=== PATIENT | male | born 1940 | race Caucasian/White ===

== ENCOUNTER 2018-07-29 11:11 | Outpatient (CLI) | payer MEDICARE | END 2018-07-29 11:12 | disposition critical access hospital (66) | LOC: EMS 11:11 | PROVIDERS: ATTEND Surgery | DX: M25.562 Pain in left knee (principal); W18.39XA Other fall on same level, initial encounter; Y92.039 Unspecified place in apartment as the place of occurrence of the external cause | CPT/HCPCS: A0425; A0429 ==

== ENCOUNTER 2018-07-29 11:30 | Emergency (ER) | payer MEDICARE ==
[2018-07-29] MEDS ORDERED: oxyCODONE 5 MG TABLET PO STA (12:10)
--- NOTE | 2018-07-29 12:12 | ED Physician Documentation ---
PD HPI LOWER EXT INJURY - Stated complaint Stated Complaint: L KNEE PAIN - Chief complaint Chief Complaint: Ext Problem - History obtained from History obtained from: Patient - History of Present Illness PD HPI LOW EXT INJURY LOCATION: Left (This is a very pleasant 77-year-old gentleman with history of CVA with left-sided deficits, currently in a [facility]. He does walk with the aid of a walker. Today they were getting him up to weigh him after shower and he fell. He injured his left knee, it was an isolated injury without head or other injury. The pain is severe with movement, not too bad at rest.) Review of Systems Constitutional: reports: Reviewed and negative Cardiac: reports: Reviewed and negative Respiratory: reports: Reviewed and negative PD PAST MEDICAL HISTORY - Past Medical History Cardiovascular: Hypertension Other Past Medical History: Left hemiplegia, hemiparesis, insomnia, chronic pain, sz, muscle weakness. - Present Medications Home Medications: Ambulatory Orders Medication Instructions Recorded Confirmed Oxycodone HCl/Acetaminophen 1 - 2 each PO Q6H PRN #14 tablet 07/29/18 [Percocet 5-325 mg Tablet] - Allergies Allergies/Adverse Reactions: Allergies Allergy/AdvReac Type Severity Reaction Status Date / Time No Known Drug Allergies Allergy Verified 07/29/18 12:27 - Social History Does the pt smoke?: No Smoking Status: Never smoker Does the pt drink ETOH?: No Does the pt have substance abuse?: No PD ED PE NORMAL - Vitals Vital signs reviewed: Yes - General General: Alert and oriented X 3, No acute distress - HEENT HEENT: Other (Modest left facial droop) - Neck Neck: Supple, no meningeal sign, No bony TTP - Derm Derm: Normal color, Warm and dry - Extremities Extremities: Other (Left upper extremity strength is good. He is holding his left knee mostly flexed, there is an effusion and he has medial and posterior tenderness without deformity. He is unable to lift it off the bed due to pain.) - Neuro Neuro: Alert and oriented X 3, Normal speech Results - Vitals Vitals: Vital Signs - 24 hr 07/29/18 07/29/18 11:46 14:42 Temperature 36.8 C Heart Rate 99 86 Respiratory 18 15 Rate Blood Pressure 148/70 H 120/53 L O2 Saturation 99 94 Oxygen O2 Source Room air - Rads (name of study) L knee XR Radiology: EMP read contemporaneously (NAD) Departure - Departure Disposition: 01 Home, Self Care Clinical Impression: Contusion of left knee Qualifiers: Encounter type: initial encounter Qualified Code(s): S80.02XA - Contusion of left knee, initial encounter Condition: Good Record reviewed to determine appropriate education?: Yes Instructions: ED Effusion Knee Follow-Up: [facility] [Provider Group] - Within 1 week Prescriptions: Oxycodone HCl/Acetaminophen [Percocet 5-325 mg Tablet] 1 - 2 each PO Q6H PRN #14 tablet PRN Reason: pain Comments: Followup with the orthopedics office within the week if not better. Return for new or worse symptoms.
[2018-07-29] MEDS ORDERED: HYDROmorphone 1 MG/ML CARPUJECT IM STA (14:29)
--- NOTE | 2018-07-29 14:39 | XRAY Report ---
Reason: knee inj Procedure Date: 07/29/2018 Accession Number: [id number] / [id number] Procedure: XR - Knee 4 View LT CPT Code: FULL RESULT: EXAM: LEFT KNEE RADIOGRAPHY EXAM DATE: 07/29/2018 02:27 PM. CLINICAL HISTORY: Fall, pain. COMPARISON: None. TECHNIQUE: 4 views. FINDINGS: Bones: Marked osteopenia. No definite fracture or other bone lesion. Joints: Joint spaces well preserved. No effusion. Minimal chondrocalcinosis. Soft Tissues: Unremarkable. IMPRESSION: Chronic findings. No definite acute disease. RADIA
[2018-07-29 14:43] VITALS: BP 120/53
[2018-07-29] MEDS ORDERED: KETOROLAC 60 MG/2 ML VIAL IM STA (15:23)
== END 2018-07-29 16:32 | disposition home or self-care (01) ==
LOC: ED 11:30
DX: S80.02XA Contusion of left knee, initial encounter (principal); W18.30XA Fall on same level, unspecified, initial encounter; Y93.89 Activity, other specified; Y92.129 Unspecified place in nursing home as the place of occurrence of the external cause; I69.354 Hemiplegia and hemiparesis following cerebral infarction affecting left non-dominant side; I10 Essential (primary) hypertension
CPT/HCPCS: 73564; 96372; 99283; A9270; J1170

== ENCOUNTER 2018-07-29 16:39 | Outpatient (CLI) | payer MEDICARE | END 2018-07-29 16:40 | disposition home or self-care (01) | LOC: EMS 16:39 | PROVIDERS: ATTEND Surgery | DX: G81.94 Hemiplegia, unspecified affecting left nondominant side (principal); M43.6 Torticollis; M25.562 Pain in left knee | CPT/HCPCS: A0425; A0428 ==

== ENCOUNTER 2018-07-31 11:06 | Outpatient (CLI) | payer MEDICARE | END 2018-07-31 11:07 | disposition critical access hospital (66) | LOC: EMS 11:06 | PROVIDERS: ATTEND Surgery | DX: M25.562 Pain in left knee (principal); M25.552 Pain in left hip; W18.2XXA Fall in (into) shower or empty bathtub, initial encounter; Y92.002 Bathroom of unspecified non-institutional (private) residence as the place of occurrence of the external cause | CPT/HCPCS: A0425; A0429 ==

== ENCOUNTER 2018-07-31 11:26 | Inpatient (IN) | payer MEDICARE ==
[2018-07-31] MEDS ORDERED: HYDROmorphone 1 MG/ML CARPUJECT IVP STA ×2 (12:08→14:09)
--- NOTE | 2018-07-31 12:09 | ED Physician Documentation ---
PD HPI LOWER EXT INJURY - Stated complaint Stated Complaint: KNEE PX - Chief complaint Chief Complaint: Ext Problem - History obtained from History obtained from: Patient - History of Present Illness PD HPI LOW EXT INJURY LOCATION: Left (This is a very pleasant 77-year-old gentleman with history of stroke in an assisted living center. He fell a few days ago and I saw him for knee pain. The x-rays were negative. He continues to have knee pain, but now the hip hurts as well. There was no new fall.) Review of Systems Ten Systems: 10 systems reviewed and negative Constitutional: reports: Reviewed and negative Cardiac: reports: Reviewed and negative Respiratory: reports: Reviewed and negative PD PAST MEDICAL HISTORY - Past Medical History Cardiovascular: Hypertension - Present Medications Home Medications: Ambulatory Orders Medication Instructions Recorded Confirmed Oxycodone HCl/Acetaminophen 1 - 2 each PO Q6H PRN #14 tablet 07/29/18 [Percocet 5-325 mg Tablet] Acetaminophen 500 mg PO 07/31/18 C,E,Zinc,Copper 11/Jdrlz7k/Lut 1 each PO 07/31/18 [Ocuvite Adult 50 Plus Softgel] Cholecalciferol (Vitamin D3) 2,000 unit PO 07/31/18 [Vitamin D] Cyanocobalamin (Vitamin B-12) 1,000 mcg PO 07/31/18 [Vitamin B-12] Metoprolol Tartrate 25 mg PO 07/31/18 Multivitamin W/Minerals [Theragran 1 tab 07/31/18 M] Potassium Chloride 20 meq PO 07/31/18 Tizanidine HCl [Zanaflex] 2 mg PO 07/31/18 07/31/18 amLODIPine [Norvasc] 10 mg PO DAILY 07/31/18 07/31/18 - Allergies Allergies/Adverse Reactions: Allergies Allergy/AdvReac Type Severity Reaction Status Date / Time No Known Drug Allergies Allergy Verified 07/31/18 11:33 - Social History Does the pt smoke?: No Smoking Status: Never smoker Does the pt drink ETOH?: No Does the pt have substance abuse?: No PD ED PE NORMAL - Vitals Vital signs reviewed: Yes - General General: Alert and oriented X 3, No acute distress - HEENT HEENT: PERRL, EOMI, Other (Left facial droop) - Neck Neck: Supple, no meningeal sign, No bony TTP - Cardiac Cardiac: RRR, No murmur - Respiratory Respiratory: No respiratory distress, Clear bilaterally - Abdomen Abdomen: Soft, Non tender - Derm Derm: Normal color, Warm and dry - Extremities Extremities: Other (I do not appreciate any tenderness about the left hip, 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 He does have a lot of pain with range of motion of the hip though, but but he points to the knee as the source of the pain.) - Neuro Neuro: Alert and oriented X 3, Normal speech - Psych Psych: Normal mood, Normal affect Results - Vitals Vitals: Vital Signs - 24 hr 07/31/18 07/31/18 11:30 12:52 Temperature 37.4 C Heart Rate 67 69 Respiratory 20 16 Rate Blood Pressure 149/75 H 119/75 O2 Saturation 95 95 Oxygen O2 Source Room air - Labs Labs: Laboratory Tests 07/31/18 07/31/18 07/31/18 12:30 12:30 12:30 WBC 9.0 RBC 4.32 L Hgb 14.9 Hct 42.2 MCV 97.8 H MCH 34.6 H MCHC 35.4 RDW 13.2 Plt Count 152 MPV 8.3 Neut # (Auto) 6.7 H Lymph # (Auto) 1.4 L E[place] # (Auto) 0.6 Eos # (Auto) 0.1 Baso # (Auto) 0.2 H Absolute Nucleated RBC 0.02 Nucleated RBC % 0.2 PT 16.6 H INR 1.5 H Sodium 128 L Potassium 4.1 Chloride 94 L Carbon Dioxide 24 Anion Gap 10.0 BUN 16 Creatinine 0.8 Estimated GFR (MDRD) 94 Glucose 167 H Calcium 9.2 Total Bilirubin 2.2 H AST 80 H ALT 75 H Alkaline Phosphatase 203 H Total Protein 7.7 Albumin 3.7 Globulin 4.0 Albumin/Globulin Ratio 0.9 L Lipase 34 Blood Type Blood Type Recheck Antibody Screen 07/31/18 07/31/18 12:30 12:30 WBC RBC Hgb Hct MCV MCH MCHC RDW Plt Count MPV Neut # (Auto) Lymph # (Auto) [place] # (Auto) Eos # (Auto) Baso # (Auto) Absolute Nucleated RBC Nucleated RBC % PT INR Sodium Potassium Chloride Carbon Dioxide Anion Gap BUN Creatinine Estimated GFR (MDRD) Glucose Calcium Total Bilirubin AST ALT Alkaline Phosphatase Total Protein Albumin Globulin Albumin/Globulin Ratio Lipase Blood Type A POSITIVE Blood Type Recheck A POSITIVE Antibody Screen NEGATIVE PD MEDICAL DECISION MAKING - ED course ED course: This is a 77-year-old gentleman who read presents by ambulance for knee pain after a fall but now a concern for potentially a hip injury as well. He has not been ambulatory since the fall per report. He is found to have a left femoral neck fracture and I spoke with Dr. Guo at 2:10 PM who will take him to the OR tomorrow and defers to the hospitalist, Dr. Bhatia for admission and we spoke at 2:14 PM. Departure - Departure Disposition: 66 [facility] DC/Xfer Clinical Impression: Fracture of femoral neck, left Qualifiers: Encounter type: initial encounter Fracture type: closed Qualified Code(s): S72.002A - Fracture of unspecified part of neck of left femur, initial encounter for closed fracture Condition: Serious
[2018-07-31 12:38] LABS: BASOPHILS # (AUTO) 0.2 10^3/uL (0.0-0.1); BASOPHILS % (AUTO) 2.6 %; EOSINOPHILS # (AUTO) 0.1 10^3/uL (0.0-0.7); EOSINOPHILS % (AUTO) 1.6 %; HGB - HEMOGLOBIN 14.9 g/dL (14.0-18.0); LYMPHOCYTES # (AUTO) 1.4 10^3/uL (1.5-3.5); MEAN CORPUSCULAR HEMOGLOBIN 34.6 pg (27.0-31.0); MEAN CORPUSCULAR HGB CONC 35.4 g/dL (32.0-36.0); MEAN CORPUSCULAR VOLUME 97.8 fL (80.0-94.0); MEAN PLATELET VOLUME 8.3 fL (7.4-11.4); MONOCYTES # (AUTO) 0.6 10^3/uL (0.0-1.0); MONOCYTES % (AUTO) 6.9 %; NEUTROPHILS # (AUTO) 6.7 10^3/uL (1.5-6.6); NEUTROPHILS % (AUTO) 73.9 %; PLT - PLATELET COUNT 152 10^3/uL (130-450); RED BLOOD COUNT 4.32 10^6/uL (4.70-6.10); RED CELL DISTRIBUTION WIDTH 13.2 % (12.0-15.0)
[2018-07-31 12:45] LABS: INR 1.5 (0.8-1.2); PT - PROTHROMBIN TIME 16.6 secs (9.9-12.6)
[2018-07-31 12:51] LABS: ALBUMIN 3.7 g/dL (3.2-5.5); ALBUMIN/GLOBULIN RATIO 0.9 (1.0-2.2); BILIRUBIN,TOTAL 2.2 mg/dL (0.2-1.0); CALCIUM 9.2 mg/dL (8.5-10.3); CREATININE 0.8 mg/dL (0.6-1.2); TOTAL PROTEIN 7.7 g/dL (6.7-8.2)
--- NOTE | 2018-07-31 14:11 | XRAY Report ---
Reason: hip pain Procedure Date: 07/31/2018 Accession Number: [id number] / [id number] Procedure: XR - Hip w/Pelvis 2-3V LT CPT Code: FULL RESULT: EXAM: LEFT HIP RADIOGRAPHY EXAM DATE: 07/31/2018 01:54 PM. CLINICAL HISTORY: Hip pain. COMPARISON: None. TECHNIQUE: 2 views. FINDINGS: Bones: Fracture appears displaced by approximately 25 mm. Joints: No dislocation at the hip joint. There is superior subluxation of the femoral metaphysis. Soft Tissues: There is scattered bowel gas, nonspecific. IMPRESSION: Positive for a left femoral neck fracture. RADIA
[2018-07-31] MEDS: HYDROmorphone 1 MG/ML CARPUJECT IVP PRN ×3 (16:24→21:05)
[2018-07-31] MEDS: SODIUM CHLORIDE FLUSH 0.9% 10 ML SYRINGE IVP SCH ×2 (16:25→18:01)
--- NOTE | 2018-07-31 17:27 | HISTORY & PHYSICAL EXAMINATION ---
Chief Complaint - Chief Complaint Chief Complaint: left knee and hip pain History of Present Illness - [facility] - History Obtained From Records Reviewed: Yes History obtained from: Patient and EMR - History of Present Illness HPI Comment/Other: Mr. Montana is a 77 year old gentleman with a PMH significant for stroke in 2015 and hypertension. On 07/29/2018, he sustained a fall at his Assisted Living Facility. He presented to the ER that day where left knee x-rays were completed and negative for acute abnormalities. He returned to his [facility] and continued to complain to left knee pain. He noticed left hip pain and he was unable to bear weight, so he presented to the ER today for further evaluation. The fall he sustained a 07/29/2018 at the [facility] occurred when he was asked to stand up on the scale to be weighed. Prior to this day, he was weighed while sitting in his wheelchair. Nevertheless, he stood up, held onto the bar and as he was moving his left leg, it slipped off the edge of the scale and he fell. Workup in the ER today revealed a left femoral neck fracture. He is being admitted to the hospital for surgical repair. Patient wishes to be a full code. History - Past Medical History Cardiovascular: reports: Hypertension Respiratory: reports: None Neuro: reports: CVA Endocrine/Autoimmune: reports: None GI: reports: None [employer]: reports: None : reports: None HEENT: reports: None Psych: reports: None Musculoskeletal: reports: None Derm: reports: None MRSA Hx?: No - Family & Social History Living arrangement: Assisted living Living Situation: With spouse/s.o. Social History Notes: Patient has been for 50 years. He currently resides at [facility] with his where he moved to from [facility] in 2018. He is originally from [place]. He has 1 son and 1 daughter who both live in [place]. - Substance History Use: Uses substance without health or social issues: NONE - POLST Patient has POLST: No Meds/Allgy - Home Medications Home Medications: Ambulatory Orders Medication Instructions Recorded Confirmed Acetaminophen 500 mg PO QPM 07/31/18 07/31/18 Cholecalciferol (Vitamin D3) 2,000 unit PO DAILY 07/31/18 07/31/18 [Vitamin D] Cyanocobalamin (Vitamin B-12) 1,000 mcg PO DAILY 07/31/18 07/31/18 [Vitamin B-12] Metoprolol Tartrate 25 mg PO QPM 07/31/18 07/31/18 Multivitamin [Theragran] 1 tab PO DAILY 07/31/18 07/31/18 Oxycodone HCl/Acetaminophen 1 - 2 tab PO Q6H PRN 07/31/18 07/31/18 [Oxycodone-Acetaminophen 5-325] Potassium Chloride 20 meq PO DAILY 07/31/18 07/31/18 Tizanidine HCl 2 mg PO QPM 07/31/18 07/31/18 Vit C/E/Zinc/Lutein/Zeaxanthin 1 tab PO DAILY 07/31/18 07/31/18 [[facility]] amLODIPine [Norvasc] 10 mg PO DAILY 07/31/18 07/31/18 - Allergies Allergies/Adverse Reactions: Allergies Allergy/AdvReac Type Severity Reaction Status Date / Time No Known Drug Allergies Allergy Verified 07/31/18 11:33 Review of Systems - Constitutional Constitutional: denies: Fatigue, Fever, Chills, Poor appetite - Eyes Eyes: denies: Blurred vision, Corrective lenses - Cardiovascular Cariovascular: denies: Irregular heart rate, Palpitations, Chest pain - Respiratory Respiratory: denies: Cough, Sputum production, Wheezing - Gastrointestinal Gastrointestinal: denies: Abdominal pain, Abdominal distention, Constipation, Diarrhea, Nausea, Vomiting - Genitourinary Genitourinary: denies: Dysuria, Frequency, Urgency - Musculoskeletal Musculoskeletal: reports: Back pain, Limited range of motion (left hip pain) - Neurological Neurological: reports: General weakness, Other (left sided facial droop). denies: Headache, Dizziness - Psychiatric Psychiatric: denies: Depression, Anxiety - All Other Systems All Other Systems: reports: Reviewed and negative Prior Level of Functionality: Patient reports that he uses a walker and wheelchair in his Assisted Living. Reports able that ambulates to the dining room with his walker. Exam - Vital Signs Reviewed Vital Signs: Yes Vital Signs: Vital Signs x48h Temp Pulse Pulse Resp BP BP Pulse Ox 07/31/18 16:34 95 07/31/18 15:44 36.3 C L 73 157/76 H 92 07/31/18 14:19 77 16 165/75 H 94 07/31/18 12:52 69 16 119/75 95 07/31/18 11:30 37.4 C 67 20 149/75 H 95 - Physical Exam General Appearance: positive: No acute distress, Alert Eyes Bilateral: positive: Normal inspection, PERRL, EOMI ENT: positive: ENT inspection nml, Dry mucous membranes Neck: positive: Nml inspection, Trachea midline Respiratory: positive: Chest non-tender, No respiratory distress, Breath sounds nml Cardiovascular: positive: Regular rate & rhythm, No murmur, No gallop Peripheral Pulses: positive: 2+ Abdomen: positive: Non-tender, No organomegaly, Nml bowel sounds, No distention Skin: positive: Warm, Dry, Decubitus (Open area to left buttock.) Extremities: positive: No pedal edema, Other (left hip and knee tenderness to palpation. Increased pain with movement.) Neurologic/Psychiatric: positive: Oriented x3, CN's nml (2-12), Motor nml, Sensation nml, Mood/affect nml Conclusion/Plan - Problem List (1) Fracture of femoral neck, left Conclusion/Plan: Seen on x-ray. Orthopedic surgeon evaluated patient. RCI 0.9%. Plan: - admit to inpatient status - telemetry - obtain EKG - NPO after midnight for surgery tomorrow - gentle IV hydration - pain control - after care per ortho Qualifiers: Encounter type: initial encounter Fracture type: closed Qualified Code(s): S72.002A - Fracture of unspecified part of neck of left femur, initial encounter for closed fracture (2) Hypertension Conclusion/Plan: Blood pressure 140-160. Likely exacerbated by pain. Plan: - continue home medications - monitor blood pressure Qualifiers: Hypertension type: essential hypertension Qualified Code(s): I10 - Essen tial (primary) hypertension (3) Hyponatremia Conclusion/Plan: Sodium 128. Unsure if acute or chronic. No other labwork to compare. Plan: - gentle IVF hydration - labs in the morning (4) Elevated liver function tests Conclusion/Plan: ALT/AST, Tbili and alk phos elevated. Patient denies abdominal pain. No previous labwork available for review. Plan: - trend LFTs - consider abdominal u/s (5) Full code status Conclusion/Plan: Patient wishes to be a full code. - Lab Results Lab results reviewed: Yes Fish Bones: 07/31/18 12:30 07/31/18 12:30 Other Lab Results: Laboratory Results - last 24 hr 07/31/18 07/31/18 07/31/18 12:30 12:30 12:30 WBC 9.0 RBC 4.32 L Hgb 14.9 Hct 42.2 MCV 97.8 H MCH 34.6 H MCHC 35.4 RDW 13.2 Plt Count 152 MPV 8.3 Neut # (Auto) 6.7 H Lymph # (Auto) 1.4 L Brown # (Auto) 0.6 Eos # (Auto) 0.1 Baso # (Auto) 0.2 H Absolute Nucleated RBC 0.02 Nucleated RBC % 0.2 PT 16.6 H INR 1.5 H Sodium 128 L Potassium 4.1 Chloride 94 L Carbon Dioxide 24 Anion Gap 10.0 BUN 16 Creatinine 0.8 Estimated GFR (MDRD) 94 Glucose 167 H Calcium 9.2 Total Bilirubin 2.2 H AST 80 H ALT 75 H Alkaline Phosphatase 203 H Total Protein 7.7 Albumin 3.7 Globulin 4.0 Albumin/Globulin Ratio 0.9 L Lipase 34 Blood Type Blood Type Recheck Antibody Screen 07/31/18 07/31/18 12:30 12:30 WBC RBC Hgb Hct MCV MCH MCHC RDW Plt Count MPV Neut # (Auto) Lymph # (Auto) Brown # (Auto) Eos # (Auto) Baso # (Auto) Absolute Nucleated RBC Nucleated RBC % PT INR Sodium Potassium Chloride Carbon Dioxide Anion Gap BUN Creatinine Estimated GFR (MDRD) Glucose Calcium Total Bilirubin AST ALT Alkaline Phosphatase Total Protein Albumin Globulin Albumin/Globulin Ratio Lipase Blood Type A POSITIVE Blood Type Recheck A POSITIVE Antibody Screen NEGATIVE - Diagnostic Imaging Results Diagnostic Imaging Results: positive: Final report reviewed Diagnostic Imaging Results Comments: 2-view Left Hip X-ray: Positive for a left femoral neck fracture - EKG Results EKG Comparison: No prior EKG EKG Findings: NSR HR 65 Core Measures - Anticipated LOS I expect patient to be DC'd or transferred within 96 hours.: Yes - DVT/VTE - Prophylaxis VTE/DVT Device ordered at admit?: Yes
[2018-07-31] MEDS ORDERED: SODIUM CHLORIDE 0.9% 1,000 ML IV SCH (18:00)
[2018-07-31] MEDS: ONDANSETRON 4 MG/2 ML VIAL IVP PRN (18:01)
--- NOTE | 2018-07-31 19:29 | XRAY Report ---
Reason: ?aspiration, persistent coughing Procedure Date: 07/31/2018 Accession Number: [id number] / [id number] Procedure: XR - Chest 1 View X-Ray CPT Code: 51635 FULL RESULT: EXAM: CHEST RADIOGRAPHY EXAM DATE: 07/31/2018 06:00 PM. CLINICAL HISTORY: ?aspiration, persistent coughing. COMPARISON: None. TECHNIQUE: 1 view. FINDINGS: Lungs/Pleura: No consolidative process or focal pneumonia. Mediastinum: Heart size is normal. Trachea is midline. Other: None. IMPRESSION: 1. Negative for an acute cardiopulmonary abnormality. RADIA
[2018-07-31] MEDS: HEPARIN 5,000 UNIT/ML VIAL SUBQ SCH (20:39)
[2018-07-31] MEDS: tiZANidine 4 MG TABLET PO SCH (20:40)
[2018-07-31] MEDS: METOPROLOL TARTRATE 25 MG TABLET PO SCH (20:40)
[2018-07-31] MEDS: SODIUM CHLORIDE FLUSH 0.9% 10 ML SYRINGE IVP PRN ×2 (21:05→22:31)
[2018-07-31] MEDS: PROCHLORPERAZINE 10 MG/2 ML VIAL IVP PRN (22:31)
[2018-08-01] MEDS: ONDANSETRON 4 MG/2 ML VIAL IVP PRN ×2 (00:19→12:07)
[2018-08-01] MEDS: HYDROmorphone 1 MG/ML CARPUJECT IVP PRN ×3 (00:19→12:07)
[2018-08-01] MEDS: SODIUM CHLORIDE FLUSH 0.9% 10 ML SYRINGE IVP SCH ×2 (00:21→17:37)
[2018-08-01] MEDS: PROCHLORPERAZINE 10 MG/2 ML VIAL IVP PRN (05:38)
[2018-08-01 06:57] LABS: ALBUMIN 3.8 g/dL (3.2-5.5); BILIRUBIN,TOTAL 2.3 mg/dL (0.2-1.0); CALCIUM 9.6 mg/dL (8.5-10.3); CREATININE 1.1 mg/dL (0.6-1.2); TOTAL PROTEIN 7.8 g/dL (6.7-8.2)
[2018-08-01] MEDS: HEPARIN 5,000 UNIT/ML VIAL SUBQ SCH (06:57)
[2018-08-01 07:00] LABS: BASOPHILS # (AUTO) 0.1 10^3/uL (0.0-0.1); BASOPHILS % (AUTO) 0.7 %; EOSINOPHILS % (AUTO) 0.2 %; HGB - HEMOGLOBIN 14.8 g/dL (14.0-18.0); LYMPHOCYTES # (AUTO) 0.8 10^3/uL (1.5-3.5); MEAN CORPUSCULAR HEMOGLOBIN 34.4 pg (27.0-31.0); MEAN CORPUSCULAR HGB CONC 34.6 g/dL (32.0-36.0); MEAN CORPUSCULAR VOLUME 99.6 fL (80.0-94.0); MEAN PLATELET VOLUME 8.3 fL (7.4-11.4); MONOCYTES # (AUTO) 0.8 10^3/uL (0.0-1.0); MONOCYTES % (AUTO) 7.8 %; NEUTROPHILS # (AUTO) 8.5 10^3/uL (1.5-6.6); NEUTROPHILS % (AUTO) 83.3 %; PLT - PLATELET COUNT 157 10^3/uL (130-450); RED CELL DISTRIBUTION WIDTH 13.4 % (12.0-15.0); WHITE BLOOD COUNT 10.2 x10^3/uL (4.8-10.8)
[2018-08-01 07:09] LABS: INR 1.4 (0.8-1.2); PT - PROTHROMBIN TIME 15.8 secs (9.9-12.6)
[2018-08-01] MEDS: SODIUM CHLORIDE 0.9% 1,000 ML IV SCH ×2 (07:37→18:57)
--- NOTE | 2018-08-01 08:05 | PROVIDER PROGRESS NOTE ---
Subjective - Prog Note Date Prog Note Date: 08/01/18 Prog Note Time: 08:05 - Subjective Subjective: Patient with nausea and emesis yesterday evening No further emesis Denies pain, only pain with movement On 1.5L NC Denies SOB or CP Reports his mouth is dry Current Medications - Current Medications Current Medications: Amlodipine Besylate (Norvasc) 10 mg PO DAILY [facility] Cholecalciferol (Vitamin D3) 2,000 unit PO DAILY [facility] Cyanocobalamin (Vitamin B-12) 1,000 mcg PO DAILY [facility] Heparin Sodium (Porcine) () 5,000 unit SUBQ BID [facility] Last Admin: 08/01/18 06:57 Dose: Not Given Hydromorphone HCl (Dilaudid Inj Carp) 1 mg IVP Q2HR PRN PRN Reason: Pain 8 to 10 Last Admin: 08/01/18 05:38 Dose: 1 mg Sodium Chloride (Normal Saline 0.9%) 1,000 mls @ 125 mls/hr IV .Q8H [facility] Last Admin: 08/01/18 07:37 Dose: 125 mls/hr Metoprolol Tartrate (Lopressor) 25 mg PO QPM [facility] Last Admin: 07/31/18 20:40 Dose: 25 mg Multivitamins (Theragran) 1 tab PO DAILY [facility] Ondansetron HCl (Zofran Inj) 4 mg IVP Q6HR PRN PRN Reason: Nausea / Vomiting Last Admin: 08/01/18 00:19 Dose: 4 mg Prochlorperazine Edisylate (Compazine Inj) 10 mg IVP Q4HR PRN PRN Reason: Nausea / Vomiting Last Admin: 08/01/18 05:38 Dose: 10 mg Sodium Chloride (Normal Saline Flush 0.9%) 10 ml IVP PRN PRN PRN Reason: NEEDED PER PROVIDER ORDERS Last Admin: 07/31/18 22:31 Dose: 10 ml Sodium Chloride (Normal Saline Flush 0.9%) 10 ml IVP 0100,0900,1700 [facility] Last Admin: 08/01/18 00:21 Dose: 10 ml Tizanidine HCl (Zanaflex) 2 mg PO QPM [facility] Last Admin: 07/31/18 20:40 Dose: 2 mg Objective - Vital Signs/Intake & Output Reviewed Vital Signs: Yes Vital Signs: Vital Signs x48h Temp Pulse Resp BP Pulse Ox 08/01/18 04:50 37.1 C 80 16 156/72 H 95 08/01/18 00:10 36.5 C 86 16 142/80 H 93 Intake & Output: Intake & Output 07/29/18 07/30/18 07/31/18 08/01/18 23:59 23:59 23:59 23:59 Intake Total 1900 1000 Output Total 400 385 Balance 1500 615 - Objective General Appearance: positive: No acute distress, Other (slightly drowsy) Eyes Bilateral: positive: Normal inspection, PERRL, EOMI ENT: positive: ENT inspection nml, Pharynx nml, Dry mucous membranes Neck: positive: Nml inspection, Trachea midline Respiratory: positive: Chest non-tender, No respiratory distress, Breath sounds nml. negative: Wheezes, Rales, Rhonchi Cardiovascular: positive: Regular rate & rhythm, No murmur, No gallop Peripheral Pulses: 2+ Dorsalis pedis (R), 2+ Dorsalis pedis (L) Abdomen: positive: Non-tender, No organomegaly, Nml bowel sounds, No distention. negative: Guarding, Rebound Skin: positive: Warm, Dry Extremities: positive: No pedal edema, Other (Left hip tender to slight palpation). negative: Calf tenderness Neurologic/Psychiatric: positive: Oriented x3, CN's nml (2-12), Motor nml, Sensation nml, Mood/affect nml - Lab Results Fish Bones: 08/01/18 06:06 08/01/18 06:06 Other Labs: Lab Results x24hrs 08/01/18 08/01/18 08/01/18 Range/Units 06:06 06:06 06:06 WBC 10.2 (4.8-10.8) x10^3/uL RBC 4.30 L (4.70-6.10) 10^6/uL Hgb 14.8 (14.0-18.0) g/dL Hct 42.8 (42.0-52.0) % MCV 99.6 H (80.0-94.0) fL MCH 34.4 H (27.0-31.0) pg MCHC 34.6 (32.0-36.0) g/dL RDW 13.4 (12.0-15.0) % Plt Count 157 (130-450) 10^3/uL MPV 8.3 (7.4-11.4) fL Neut # (Auto) 8.5 H (1.5-6.6) 10^3/uL Lymph # (Auto) 0.8 L (1.5-3.5) 10^3/uL [place] # (Auto) 0.8 (0.0-1.0) 10^3/uL Eos # (Auto) 0.0 (0.0-0.7) 10^3/uL Baso # (Auto) 0.1 (0.0-0.1) 10^3/uL Absolute Nucleated RBC 0.00 x10^3/uL Nucleated RBC % 0.0 /100WBC PT 15.8 H (9.9-12.6) secs INR 1.4 H (0.8-1.2) Sodium 129 L (135-145) mmol/L Potassium 4.6 (3.5-5.0) mmol/L Chloride 93 L (101-111) mmol/L Carbon Dioxide 25 (21-32) mmol/L Anion Gap 11.0 (6-13) BUN 28 H (6-20) mg/dL Creatinine 1.1 (0.6-1.2) mg/dL Estimated GFR (MDRD) 65 L (>89) Glucose 152 H (70-100) mg/dL Calcium 9.6 (8.5-10.3) mg/dL Total Bilirubin 2.3 H (0.2-1.0) mg/dL AST 71 H (10-42) IU/L ALT 72 H (10-60) IU/L Alkaline Phosphatase 195 H (42-121) IU/L Total Protein 7.8 (6.7-8.2) g/dL Albumin 3.8 (3.2-5.5) g/dL Globulin 4.0 (2.1-4.2) g/dL Albumin/Globulin Ratio 1.0 (1.0-2.2) Lipase (22-51) U/L Blood Type Blood Type Recheck Antibody Screen 07/31/18 07/31/18 07/31/18 Range/Units 12:30 12:30 12:30 WBC (4.8-10.8) x10^3/uL RBC (4.70-6.10) 10^6/uL Hgb (14.0-18.0) g/dL Hct (42.0-52.0) % MCV (80.0-94.0) fL MCH (27.0-31.0) pg MCHC (32.0-36.0) g/dL RDW (12.0-15.0) % Plt Count (130-450) 10^3/uL MPV (7.4-11.4) fL Neut # (Auto) (1.5-6.6) 10^3/uL Lymph # (Auto) (1.5-3.5) 10^3/uL [place] # (Auto) (0.0-1.0) 10^3/uL Eos # (Auto) (0.0-0.7) 10^3/uL Baso # (Auto) (0.0-0.1) 10^3/uL Absolute Nucleated RBC x10^3/uL Nucleated RBC % /100WBC PT (9.9-12.6) secs INR (0.8-1.2) Sodium 128 L (135-145) mmol/L Potassium 4.1 (3.5-5.0) mmol/L Chloride 94 L (101-111) mmol/L Carbon Dioxide 24 (21-32) mmol/L Anion Gap 10.0 (6-13) BUN 16 (6-20) mg/dL Creatinine 0.8 (0.6-1.2) mg/dL Estimated GFR (MDRD) 94 (>89) Glucose 167 H (70-100) mg/dL Calcium 9.2 (8.5-10.3) mg/dL Total Bilirubin 2.2 H (0.2-1.0) mg/dL AST 80 H (10-42) IU/L ALT 75 H (10-60) IU/L Alkaline Phosphatase 203 H (42-121) IU/L Total Protein 7.7 (6.7-8.2) g/dL Albumin 3.7 (3.2-5.5) g/dL Globulin 4.0 (2.1-4.2) g/dL Albumin/Globulin Ratio 0.9 L (1.0-2.2) Lipase 34 (22-51) U/L Blood Type A POSITIVE Blood Type Recheck A POSITIVE Antibody Screen NEGATIVE 07/31/18 07/31/18 Range/Units 12:30 12:30 WBC 9.0 (4.8-10.8) x10^3/uL RBC 4.32 L (4.70-6.10) 10^6/uL Hgb 14.9 (14.0-18.0) g/dL Hct 42.2 (42.0-52.0) % MCV 97.8 H (80.0-94.0) fL MCH 34.6 H (27.0-31.0) pg MCHC 35.4 (32.0-36.0) g/dL RDW 13.2 (12.0-15.0) % Plt Count 152 (130-450) 10^3/uL MPV 8.3 (7.4-11.4) fL Neut # (Auto) 6.7 H (1.5-6.6) 10^3/uL Lymph # (Auto) 1.4 L (1.5-3.5) 10^3/uL [place] # (Auto) 0.6 (0.0-1.0) 10^3/uL Eos # (Auto) 0.1 (0.0-0.7) 10^3/uL Baso # (Auto) 0.2 H (0.0-0.1) 10^3/uL Absolute Nucleated RBC 0.02 x10^3/uL Nucleated RBC % 0.2 /100WBC PT 16.6 H (9.9-12.6) secs INR 1.5 H (0.8-1.2) Sodium (135-145) mmol/L Potassium (3.5-5.0) mmol/L Chloride (101-111) mmol/L Carbon Dioxide (21-32) mmol/L Anion Gap (6-13) BUN (6-20) mg/dL Creatinine (0.6-1.2) mg/dL Estimated GFR (MDRD) (>89) Glucose (70-100) mg/dL Calcium (8.5-10.3) mg/dL Total Bilirubin (0.2-1.0) mg/dL AST (10-42) IU/L ALT (10-60) IU/L Alkaline Phosphatase (42-121) IU/L Total Protein (6.7-8.2) g/dL Albumin (3.2-5.5) g/dL Globulin (2.1-4.2) g/dL Albumin/Globulin Ratio (1.0-2.2) Lipase (22-51) U/L Blood Type Blood Type Recheck Antibody Screen Assessment/Plan - Problem List (1) Fracture of femoral neck, left Impression: Seen on x-ray. Orthopedic surgeon evaluated patient. RCI 0.9%. Plan: - to OR today - telemetry - continue IV hydration - pain control - after care per ortho Qualifiers: Encounter type: initial encounter Fracture type: closed Qualified Code(s): S72.002A - Fracture of unspecified part of neck of left femur, initial encounter for closed fracture (2) Hypertension Impression: BP improved. Plan: - continue home medications - monitor blood pressure Qualifiers: Hypertension type: essential hypertension Qualified Code(s): I10 - Essential (primary) hypertension (3) Hyponatremia Impression: Sodium 129. Unsure if acute or chronic. No other labwork to compare. Plan: - gentle IVF hydration - follow sodium level (4) Elevated liver function tests Impression: ALT/AST, Tbili and alk phos elevated. Patient denies abdominal pain. No previous labwork available for review. Labs stable from yesterday. Plan: - trend LFTs
--- NOTE | 2018-08-01 09:16 | ANESTHESIA ---
Pre-Anesthesia VS, & Labs - Diagnosis Left Hip fracture - Procedure Left hip shun arthroplasty Vital Signs: Temp Pulse Resp BP Pulse Ox 36.9 C 82 14 125/65 94 08/01/18 08:20 08/01/18 08:20 08/01/18 08:20 08/01/18 08:20 08/01/18 08:20 Height 6 ft Weight (kg) 94.5 kg Body Mass Index 28.4 - NPO >8 hours - Lab Results Current Lab Results: Laboratory Tests 08/01/18 06:06: Sodium 129 L, Potassium 4.6, Chloride 93 L, Carbon Dioxide 25, Anion Gap 11.0, BUN 28 H, Creatinine 1.1, Estimated GFR (MDRD) 65 L, Glucose 152 H, Calcium 9.6, Total Bilirubin 2.3 H, AST 71 H, ALT 72 H, Alkaline Phosphatase 195 H, Total Protein 7.8, Albumin 3.8, Globulin 4.0, Albumin/Globulin Ratio 1.0 08/01/18 06:06: PT 15.8 H, INR 1.4 H 08/01/18 06:06: WBC 10.2, RBC 4.30 L, Hgb 14.8, Hct 42.8, MCV 99.6 H, MCH 34.4 H , MCHC 34.6, RDW 13.4, Plt Count 157, MPV 8.3, Neut # (Auto) 8.5 H, Lymph # (Auto) 0.8 L, [place] # (Auto) 0.8, Eos # (Auto) 0.0, Baso # (Auto) 0.1, Absolute Nucleated RBC 0.00, Nucleated RBC % 0.0 07/31/18 12:30: Blood Type Recheck A POSITIVE 07/31/18 12:30: Blood Type A POSITIVE, Antibody Screen NEGATIVE 07/31/18 12:30: Sodium 128 L, Potassium 4.1, Chloride 94 L, Carbon Dioxide 24, Anion Gap 10.0, BUN 16, Creatinine 0.8, Estimated GFR (MDRD) 94, Glucose 167 H, Calcium 9.2, Total Bilirubin 2.2 H, AST 80 H, ALT 75 H, Alkaline Phosphatase 203 H, Total Protein 7.7, Albumin 3.7, Globulin 4.0, Albumin/Globulin Ratio 0.9 L, Lipase 34 07/31/18 12:30: PT 16.6 H, INR 1.5 H 07/31/18 12:30: WBC 9.0, RBC 4.32 L, Hgb 14.9, Hct 42.2, MCV 97.8 H, MCH 34.6 H, MCHC 35.4, RDW 13.2, Plt Count 152, MPV 8.3, Neut # (Auto) 6.7 H, Lymph # (Auto) 1.4 L, [place] # (Auto) 0.6, Eos # (Auto) 0.1, Baso # (Auto) 0.2 H, Absolute Nucleated RBC 0.02, Nucleated RBC % 0.2 Fish Bones: 08/01/18 06:06 08/01/18 06:06 Home Medications and Allergies Home Medications: Ambulatory Orders Acetaminophen 500 mg PO QPM 07/31/18 Cholecalciferol (Vitamin D3) [Vitamin D] 2,000 unit PO DAILY 07/31/18 Cyanocobalamin (Vitamin B-12) [Vitamin B-12] 1,000 mcg PO DAILY 07/31/18 Metoprolol Tartrate 25 mg PO QPM 07/31/18 Multivitamin [Theragran] 1 tab PO DAILY 07/31/18 Oxycodone HCl/Acetaminophen [Oxycodone-Acetaminophen 5-325] 1 - 2 tab PO Q6H PRN 07/31/18 Potassium Chloride 20 meq PO DAILY 07/31/18 Tizanidine HCl 2 mg PO QPM 07/31/18 Vit C/E/Zinc/Lutein/Zeaxanthin [[facility]] 1 tab PO DAILY 07/31/18 amLODIPine [Norvasc] 10 mg PO DAILY 07/31/18 Active Medications Amlodipine Besylate (Norvasc) 10 mg PO DAILY [facility] Cholecalciferol (Vitamin D3) 2,000 unit PO DAILY [facility] Cyanocobalamin (Vitamin B-12) 1,000 mcg PO DAILY [facility] Hydromorphone HCl (Dilaudid Inj Carp) 1 mg IVP Q2HR PRN PRN Reason: Pain 8 to 10 Last Admin: 08/01/18 05:38 Dose: 1 mg Sodium Chloride (Normal Saline 0.9%) 1,000 mls @ 125 mls/hr IV .Q8H [facility] Last Admin: 08/01/18 07:37 Dose: 125 mls/hr Metoprolol Tartrate (Lopressor) 25 mg PO QPM [facility] Last Admin: 07/31/18 20:40 Dose: 25 mg Multivitamins (Theragran) 1 tab PO DAILY [facility] Ondansetron HCl (Zofran Inj) 4 mg IVP Q6HR PRN PRN Reason: Nausea / Vomiting Last Admin: 08/01/18 00:19 Dose: 4 mg Prochlorperazine Edisylate (Compazine Inj) 10 mg IVP Q4HR PRN PRN Reason: Nausea / Vomiting Last Admin: 08/01/18 05:38 Dose: 10 mg Sodium Chloride (Normal Saline Flush 0.9%) 10 ml IVP PRN PRN PRN Reason: NEEDED PER PROVIDER ORDERS Last Admin: 07/31/18 22:31 Dose: 10 ml Sodium Chloride (Normal Saline Flush 0.9%) 10 ml IVP 0100,0900,1700 [facility] Last Admin: 08/01/18 00:21 Dose: 10 ml Tizanidine HCl (Zanaflex) 2 mg PO QPM [facility] Last Admin: 07/31/18 20:40 Dose: 2 mg Acetaminophen 500 mg PO QPM 07/31/18 Cholecalciferol (Vitamin D3) [Vitamin D] 2,000 unit PO DAILY 07/31/18 Cyanocobalamin (Vitamin B-12) [Vitamin B-12] 1,000 mcg PO DAILY 07/31/18 Metoprolol Tartrate 25 mg PO QPM 07/31/18 Multivitamin [Theragran] 1 tab PO DAILY 07/31/18 Oxycodone HCl/Acetaminophen [Oxycodone-Acetaminophen 5-325] 1 - 2 tab PO Q6H PRN 07/31/18 Potassium Chloride 20 meq PO DAILY 07/31/18 Tizanidine HCl 2 mg PO QPM 07/31/18 Vit C/E/Zinc/Lutein/Zeaxanthin [[facility] Gummies] 1 tab PO DAILY 07/31/18 amLODIPine [Norvasc] 10 mg PO DAILY 07/31/18 Allergies/Adverse Reactions: Allergies Allergy/AdvReac Type Severity Reaction Status Date / Time No Known Drug Allergies Allergy Verified 07/31/18 11:33 Anes History & Medical History - Anesthetic History Anesthesia Complications: reports: No previous complications Family history of Anesthesia Complications: Denies Family history of Malignant Hyperthermia: Denies - Medical History Cardiovascular: reports: Hypertension Pulmonary: reports: None Gastrointestinal: reports: None Urinary: reports: None 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) Musculoskeletal: reports: None Endocrine/Autoimmune: reports: None Blood Disorders: reports: None Skin: reports: None Smoking Status: Never smoker Psychosocial: reports: No issues indicated - Surgical History General: Cholecystectomy Orthopedic: Spine surgery Results - EKG Results EKG Comparison: Reviewed EKG Exam General: Oriented x3, Cooperative, No acute distress Dental: WNL Mouth Openin Fingerbreadth Neck Mobility: Reduced Mallampati classification: III Thyromental Distance: 4-6 cm Respiratory: Lungs clear, Normal breath sounds, No respiratory distress, No accessory muscle use Cardiovascular: Regular rate, Normal S1, Normal S2, No murmurs Mental/Cognitive Status: Normal for patient, Oriented to name, Oriented to date, Oriented to time Cognitive Status: Other (describe below) (Patient sedate) Plan Anesthesia Type: General, Fascia Iliaca Block (Left) Regional Block: Per Surgeon's request for Post Op pain control Consent for Procedure(s) Verified and Reviewed: Yes Code Status: Attempt Resuscitation ASA classification: 3-Severe systemic disease Is this case an emergency?: No
[2018-08-01] MEDS ORDERED: ROPIVACAINE 0.5% PF 20 ML AMPULE ONE ×2 (09:37→13:51)
[2018-08-01] MEDS: amLODIPine 5 MG TABLET PO SCH (11:01)
[2018-08-01] MEDS: CHOLECALCIFEROL 1,000 UNIT TABLET PO SCH (11:02)
[2018-08-01] MEDS: CYANOCOBALAMIN 500 MCG TABLET PO SCH (11:02)
[2018-08-01] MEDS: MULTIVITAMIN TABLET PO SCH (11:02)
--- NOTE | 2018-08-01 11:04 | ANESTHESIA PROCEDURE NOTE ---
Diagnosis: Left hip fracture Procedure: Left fascia iliaca block Consent for Procedure(s) Verified and Reviewed: Yes Height and Weight: Height 6 ft Weight (kg) 94.5 kg Body Mass Index 28.4 Vital Signs: Temp Pulse Resp BP Pulse Ox 36.9 C 82 14 125/65 94 08/01/18 08:20 08/01/18 08:20 08/01/18 08:20 08/01/18 08:20 08/01/18 08:20 Allergies No Known Drug Allergies Allergy (Verified 07/31/18 11:33) Requesting Provider: Brant for post op pain control Location: Left Leg ASA classification: 3-Severe systemic disease Is this case an emergency?: No Anes. Monitoring and Equipment: Non-invasive BP, Pulse oximetery, Sterile prep and drape Anes. Procedure Start Time: 09:50 Anes. Procedure Stop Time: 10:05 Procedure Notes: Patient identified and timeout procedure completed. Patient's left groin prepped with chloroprep and ultrasound was used to image the facia iliaca. A 22G blunted needle was advanced toward the facia and a total of 60ml of 0.25% ropivicaine plus 8mg decadron was injected. Adequate spread was noted throughout the facial plane. Patient tolerated procedure well. Full evaluation is pending.
--- NOTE | 2018-08-01 11:20 | CONSULTATION NOTE ---
DATE OF SERVICE: 07/31/2018 Physician: Harpreet Guo MD REQUESTING PHYSICIAN: Dr. Briscoe. REASON FOR CONSULTATION: Left hip fracture. 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 The patient states that he spends most of his time at the assisted living center, utilizing a wheelchair and his walker, and does not travel outside much or ambulate very much. He does not have lower extremity pain, and he has preserved some good control of his lower extremity. He had not had previous hip arthritis. He suffered a fall on 07/29/2018 and at the time had knee pain without hip pain and most likely had a femoral neck fracture at that time, and presented back to the emergency room on 07/31/2018 with increasing hip pain and complete inability to get up and move around. PRIOR MEDICAL HISTORY: Reviewed, and mainly consists of issues related to his stroke and hypertension and him denying heart problems, respiratory problems or smoking. MEDICATIONS: His list of medications is reviewed and is documented. ALLERGIES: HE HAS NO ALLERGIES. The review of systems was noncontributory other than pain in the hip area; no pain elsewhere at this time. IMAGING: Patient had x-rays obtained, revealing a completely displaced mid transcervical femoral neck fracture with no evidence of hip arthritis. His bone density appears osteopenic. IMPRESSION: The patient has a displaced femoral neck fracture with severe pain and is a candidate for hemiarthroplasty of his hip, which has been discussed with him in detail, including potential risks and complications of intervention, and he has signed surgical consent to proceed with surgery, scheduled 08/01/2018. TD: 08/01/2018 09:28 NATALIE
[2018-08-01] MEDS: SODIUM CHLORIDE FLUSH 0.9% 10 ML SYRINGE IVP PRN (12:07)
[2018-08-01] MEDS ORDERED: BUPIVACAINE 0.5%-EPI 1:200000 PF 30 ML VIAL ONE ×2 (12:37→13:51)
[2018-08-01] MEDS ORDERED: ceFAZolin 2 GM/50 ML 2 GM/50 ML BAG IV ONE (13:09)
[2018-08-01] MEDS ORDERED: EPINEPHrine 1 MG/ML AMP ONE (13:51)
[2018-08-01] MEDS ORDERED: MORPHINE PF 10 MG/10 ML AMP SUBQ ONE (13:56)
[2018-08-01] MEDS ORDERED: ROPIVACAINE 0.5% PF 20 ML AMPULE SUBQ ONE (13:56)
[2018-08-01] MEDS ORDERED: KETOROLAC 30 MG/ML VIAL IM ONE (13:56)
[2018-08-01] MEDS ORDERED: EPINEPHrine 1 MG/ML AMP SUBQ ONE (13:56)
[2018-08-01] MEDS ORDERED: KETOROLAC 30 MG/ML VIAL IVP ONE (13:57)
[2018-08-01] MEDS ORDERED: DEXAMETHASONE 4 MG/ML VIAL IVP ONE (13:57)
[2018-08-01] MEDS ORDERED: HYDROmorphone 1 MG/ML CARPUJECT IVP ONE (13:57)
[2018-08-01] MEDS ORDERED: PROPOFOL 200 MG/20 ML VIAL IVP ONE (13:57)
[2018-08-01] MEDS ORDERED: ONDANSETRON 4 MG/2 ML VIAL IVP ONE (13:57)
[2018-08-01] MEDS ORDERED: GLYCOPYRROLATE 1 MG/5 ML VIAL IVP ONE (13:57)
[2018-08-01] MEDS ORDERED: ePHEDrine 50 MG/ML VIAL IVP ONE (13:57)
[2018-08-01] MEDS ORDERED: NEOSTIGMINE 1 MG/1 ML 10 ML MDV IVP ONE (13:57)
[2018-08-01] MEDS ORDERED: fentaNYL 100 MCG/2 ML VIAL IVP ONE (13:57)
[2018-08-01] MEDS ORDERED: TRANEXAMIC ACID 1,000 MG/10 ML VIAL IV ONE (13:57)
[2018-08-01] MEDS ORDERED: ROCURONIUM 50 MG/5 ML VIAL IVP ONE (13:57)
[2018-08-01] MEDS ORDERED: LACTATED RINGERS 1,000 ML IV ONE ×2 (14:05→14:53)
--- NOTE | 2018-08-01 15:04 | OPERATIVE REPORT ---
Operative Report - General Admit Date: 07/31/18 Procedure Date: 08/01/18 Planned Procedure: hemiarthroplasty left hip Pre-Op Diagnosis: displaced left hip fracture Procedure Performed: hemiarthroplasty left hip Post Op Diagnosis: same - Procedure Note Primary Surgeon: tawanna Anesthesia Provider: Tj Almazan Anesthesia Technique: General ET tube Estimated Blood Loss (mL): 200
[2018-08-01] MEDS ORDERED: HYDROmorphone 0.5 MG/0.5 ML SYRINGE IVP PRN (15:08)
[2018-08-01] MEDS ORDERED: ACETAMINOPHEN 1,000 MG/100 ML 100 ML IV ONE (15:31)
--- NOTE | 2018-08-01 16:18 | XRAY Report ---
Reason: post op Procedure Date: 08/01/2018 Accession Number: [id number] / [id number] Procedure: XR - Hip w/Pelvis 2-3V LT CPT Code: FULL RESULT: EXAM: LEFT HIP RADIOGRAPHY EXAM DATE: 08/01/2018 03:41 PM. CLINICAL HISTORY: Post op. COMPARISON: HIP W/PELVIS 2-3V LT 07/31/2018 1:42 PM. TECHNIQUE: 1 view. FINDINGS: Status post hip arthroplasty. Alignment through the hip within normal limits. Hardware appears well-positioned. No significant soft tissue abnormalities are seen. IMPRESSION: No unexpected or emergent findings status post hip arthroplasty. RADIA
[2018-08-01] MEDS: MIN OIL/DIMETHICON/COCONUT OIL 92 GM TUBE TOP PRN (16:33)
[2018-08-01] MEDS: METOPROLOL TARTRATE 25 MG TABLET PO SCH (21:10)
[2018-08-01] MEDS: tiZANidine 4 MG TABLET PO SCH (21:10)
[2018-08-01] MEDS: ceFAZolin 2 GM/50 ML 2 GM/50 ML BAG IV SCH (21:13)
--- NOTE | 2018-08-01 21:45 | OPERATIVE REPORT ---
DATE OF SERVICE: 08/01/2018 Physician: Harpreet Guo MD PREOPERATIVE DIAGNOSIS: Left displaced femoral neck fracture. POSTOPERATIVE DIAGNOSIS: Left displaced femoral neck fracture. PROCEDURE PERFORMED: Left hip bipolar replacement. OPERATING SURGEON: Harpreet Guo MD. ANESTHESIA PROVIDER: General by Darlene Almazan CRNA. INDICATIONS FOR SURGERY: Patient is a 77-year-old male who is status post a fall, ground level, on 0 07/29/2018, injuring his left hip, diagnosed again on admission to the hospital on 07/31/2018, as he w as having continued hip pain and unable to ambulate. Evaluation then revealed a completely displaced femoral neck fracture, and recommendation was made for bipolar hip replacement. FINDINGS AT SURGERY: Patient had a displaced femoral neck fracture with comminution across the fract ure site and hematoma in the capsule. The patient's acetabular cartilage was preserved. DESCRIPTION OF OPERATIVE PROCEDURE: Patient was taken to the operating room, given a general anesthe tic. He was positioned on the OR table and then rolled into a right lateral decubitus position with appropriate padding and a pegboard support. His hip was isolated with plastic drapes and sterilely p repped and draped in standard fashion. A surgical timeout was held. The patient underwent surgery with a posterior hip approach approximately 9 inches in length, centere d over the greater trochanter, taken down to the short rotators, which were divided against the back of the femoral neck and trochanter. The capsule was incised and the hemorrhage evacuated, and the ne ck cut was freshened with a saw, which allowed access to the fractured femoral head and removal with a corkscrew. The acetabulum was inspected and was pristine. The area was flushed and irrigated and fragments of bone removed. Following this, retractors were positioned so that a box cutting osteotome could be used in the troch anter, followed by canal finder and sequential reaming up to size 16 echo proximal reamers, followed by broaches starting at 14 advancing up to 16, with a trial reduction done with standard offset and 3 0 and 54 mm head. This yielded excellent range of motion, good judaism of soft tissue tension, a nd good stability of the hip. The trial components were removed, and the femoral canal was dried and prepared for cementing. Cemen t was mixed as the components were obtained and then cemented into place, cementing the femoral stem in about 30 degrees of anteversion, as this was the desired position for stability, and this was a si ze 13 implant. The cement was allowed to harden and excess cement removed. The acetabular area was cleaned again, irrigated, and the assembled standard neck, 54 mm outer diameter bipolar head assemble d was inserted onto the stem and reduced into the acetabulum. Once again, limb lengths were restored and stability was excellent. After flushing the hip thoroughly, a closure was undertaken with FiberWire closure of short rotators and capsule, followed by interrupted FiberWire and Vicryl closure of tensor fascia, followed by inter rupted Vicryl closure of subcutaneous tissue and 2-0 Monocryl closure of skin with application of a s ilver-containing dressing. The patient was then carefully taken from a lateral decubitus position on to a hospital bed in a supine position. He was taken to the recovery room in stable condition. ESTIMATED BLOOD LOSS: 200 mL COMPLICATIONS: None. COUNTS: Sponge and needle counts correct. IMPLANTS USED: Janine Echo stem with distal canal centralizer; bipolar head of 54 mm outer diameter, 28 mm inner diameter. TD: 08/01/2018 16:25
[2018-08-02] MEDS: SODIUM CHLORIDE FLUSH 0.9% 10 ML SYRINGE IVP SCH ×3 (00:07→16:41)
[2018-08-02] MEDS ORDERED: CALCIUM CARBONATE CHEW 500 MG TABLET PO PRN (01:06)
[2018-08-02] MEDS: ONDANSETRON 4 MG/2 ML VIAL IVP PRN ×2 (01:49→13:05)
[2018-08-02] MEDS: PROCHLORPERAZINE 10 MG/2 ML VIAL IVP PRN ×2 (02:49→16:00)
[2018-08-02] MEDS: SODIUM CHLORIDE 0.9% 1,000 ML IV SCH ×3 (04:14→20:52)
[2018-08-02] MEDS: ceFAZolin 2 GM/50 ML 2 GM/50 ML BAG IV SCH (05:20)
[2018-08-02] MEDS: MIN OIL/DIMETHICON/COCONUT OIL 92 GM TUBE TOP PRN (05:26)
[2018-08-02 06:10] LABS: BASOPHILS % (AUTO) 0.2 %; LYMPHOCYTES # (AUTO) 0.9 10^3/uL (1.5-3.5); LYMPHOCYTES % (AUTO) 9.6 %; MEAN CORPUSCULAR HEMOGLOBIN 34.4 pg (27.0-31.0); MEAN CORPUSCULAR HGB CONC 34.5 g/dL (32.0-36.0); MEAN CORPUSCULAR VOLUME 99.8 fL (80.0-94.0); MONOCYTES # (AUTO) 0.7 10^3/uL (0.0-1.0); MONOCYTES % (AUTO) 7.7 %; NEUTROPHILS # (AUTO) 7.9 10^3/uL (1.5-6.6); NEUTROPHILS % (AUTO) 82.5 %; PLT - PLATELET COUNT 182 10^3/uL (130-450); RED BLOOD COUNT 3.77 10^6/uL (4.70-6.10); RED CELL DISTRIBUTION WIDTH 13.3 % (12.0-15.0); WHITE BLOOD COUNT 9.5 x10^3/uL (4.8-10.8)
[2018-08-02 06:11] LABS: CALCIUM 8.8 mg/dL (8.5-10.3); CREATININE 0.8 mg/dL (0.6-1.2)
--- NOTE | 2018-08-02 07:19 | XRAY Report ---
Reason: increased vomiting and abd distension. Concern for Procedure Date: 08/02/2018 Accession Number: [id number] / [id number] Procedure: XR - Abdomen 1 View X-Ray CPT Code: 63924 FULL RESULT: EXAM: ABDOMEN RADIOGRAPHY EXAM DATE: 08/02/2018 06:53 AM. CLINICAL HISTORY: Increased vomiting and abd distension. Concern for obstruction. COMPARISON: None. TECHNIQUE: 1 view. FINDINGS: Bowel Gas Pattern: There is severe distention of the stomach. No small bowel dilation is demonstrated. Cast present and normal caliber small bowel and colon. Small amount of gas is also demonstrated in the rectum. Other: Streaky opacities present in the visualized left lung base. There is mild apex left curvature of the lumbar spine with multilevel degenerative change. A left hip prosthesis is partially visualized. Surgical clips present in the right upper abdomen. There also appear to be calcifications in the left upper abdomen, which are typically seen with splenic artery calcification. IMPRESSION: 1. Severe gaseous distention of the stomach. In the recent postoperative setting, this probably represents sequela of gastric hypomotility. Acute development of gastric outlet obstruction is uncommon. Patient may benefit from nasogastric tube decompression. 2. No radiographic evidence of small bowel obstruction. [facility]
--- NOTE | 2018-08-02 08:54 | PROVIDER PROGRESS NOTE ---
Subjective - Prog Note Date Prog Note Date: 08/02/18 Prog Note Time: 09:00 - Subjective Subjective: Underwent left hip surgery yesterday Denies pain Patient with bouts of emesis overnight and this morning Has been able to keep liquids down KUB completed with evidence of distended stomach, patient declines NGT, requesting 7up Passing flatus, no BM On 2L NC Current Medications - Current Medications Current Medications: Hydrocodone Bitart/Acetaminophen ([place] 7.5/325) 1 tab PO Q4HR PRN PRN Reason: PAIN Amlodipine Besylate (Norvasc) 10 mg PO DAILY [facility] Last Admin: 08/01/18 11:01 Dose: 10 mg Calcium Carbonate/Glycine (Tums) 500 mg PO TID PRN PRN Reason: Heartburn Cholecalciferol (Vitamin D3) 2,000 unit PO DAILY [facility] Last Admin: 08/01/18 11:02 Dose: 2,000 unit Cyanocobalamin (Vitamin B-12) 1,000 mcg PO DAILY [facility] Last Admin: 08/01/18 11:02 Dose: 1,000 mcg Enoxaparin Sodium (Lovenox) 30 mg SUBQ DAILY [facility] Last Admin: 08/02/18 09:23 Dose: 30 mg Hydromorphone HCl (Dilaudid Inj Syringe) 0.5 mg IVP Q2H PRN PRN Reason: PAIN Sodium Chloride (Normal Saline 0.9%) 1,000 mls @ 125 mls/hr IV .Q8H [facility] Last Admin: 08/02/18 04:14 Dose: 125 mls/hr Metoprolol Tartrate (Lopressor) 25 mg PO QPM [facility] Last Admin: 08/01/18 21:10 Dose: 25 mg Mineral Oil (Cavilon) 1 applic TOP PRN PRN PRN Reason: Skin Care Last Admin: 08/02/18 05:26 Dose: 1 applic Multivitamins (Theragran) 1 tab PO DAILY [facility] Last Admin: 08/01/18 11:02 Dose: 1 tab Ondansetron HCl (Zofran Inj) 4 mg IVP Q6HR PRN PRN Reason: Nausea / Vomiting Last Admin: 08/02/18 01:49 Dose: 4 mg Pantoprazole Sodium (Protonix) 40 mg IVP QDAC [facility] Last Admin: 08/02/18 09:23 Dose: 40 mg Polyethylene Glycol (Miralax) 17 gm PO DAILY [facility] Last Admin: 08/02/18 09:24 Dose: 17 gm Prochlorperazine Edisylate (Compazine Inj) 10 mg IVP Q4HR PRN PRN Reason: Nausea / Vomiting Last Admin: 08/02/18 02:49 Dose: 10 mg Sodium Chloride (Normal Saline Flush 0.9%) 10 ml IVP PRN PRN PRN Reason: NEEDED PER PROVIDER ORDERS Last Admin: 08/01/18 12:07 Dose: 10 ml Sodium Chloride (Normal Saline Flush 0.9%) 10 ml IVP 0100,0900,1700 [facility] Last Admin: 08/02/18 09:14 Dose: Not Given Tizanidine HCl (Zanaflex) 2 mg PO QPM [facility] Last Admin: 08/01/18 21:10 Dose: 2 mg Objective - Vital Signs/Intake & Output Reviewed Vital Signs: Yes Vital Signs: Vital Signs x48h Temp Pulse Pulse Resp BP Pulse Ox 08/02/18 08:32 36.6 C 82 20 94 08/02/18 05:22 36.6 C 82 16 151/70 H 93 Intake & Output: Intake & Output 07/30/18 07/31/18 08/01/18 08/02/18 23:59 23:59 23:59 23:59 Intake Total 1900 2883.333 766.667 Output Total 778 378 9373 Balance 1500 1973.333 -1308.333 - Objective General Appearance: positive: No acute distress, Other (drowsy, but will awaken to answer questions) Eyes Bilateral: positive: Normal inspection, PERRL, EOMI ENT: positive: ENT inspection nml, Pharynx nml, Dry mucous membranes Neck: positive: Nml inspection, Trachea midline Respiratory: positive: Chest non-tender, No respiratory distress, Breath sounds nml, Other (On 2L NC). negative: Wheezes, Rales, Rhonchi Cardiovascular: positive: Regular rate & rhythm, No murmur, No gallop Peripheral Pulses: 2+ Dorsalis pedis (R), 2+ Dorsalis pedis (L) Abdomen: positive: Non-tender, No organomegaly, Nml bowel sounds. negative: No distention, Guarding, Rebound Skin: positive: Warm, Dry Extremities: positive: No pedal edema, Other (left hip surgical dressing c/d/i.) Neurologic/Psychiatric: positive: Oriented x3, CN's nml (2-12), Sensation nml, Mood/affect nml, Weakness - Lab Results Fish Bones: 08/02/18 05:39 08/02/18 05:39 Other Labs: Lab Results x24hrs 08/02/18 08/02/18 Range/Units 05:39 05:39 WBC 9.5 (4.8-10.8) x10^3/uL RBC 3.77 L (4.70-6.10) 10^6/uL Hgb 13.0 L (14.0-18.0) g/dL Hct 37.6 L (42.0-52.0) % MCV 99.8 H (80.0-94.0) fL MCH 34.4 H (27.0-31.0) pg MCHC 34.5 (32.0-36.0) g/dL RDW 13.3 (12.0-15.0) % Plt Count 182 (130-450) 10^3/uL MPV 8.0 (7.4-11.4) fL Neut # (Auto) 7.9 H (1.5-6.6) 10^3/uL Lymph # (Auto) 0.9 L (1.5-3.5) 10^3/uL [place] # (Auto) 0.7 (0.0-1.0) 10^3/uL Eos # (Auto) 0.0 (0.0-0.7) 10^3/uL Baso # (Auto) 0.0 (0.0-0.1) 10^3/uL Absolute Nucleated RBC 0.00 x10^3/uL Nucleated RBC % 0.0 /100WBC Sodium 130 L (135-145) mmol/L Potassium 4.4 (3.5-5.0) mmol/L Chloride 94 L (101-111) mmol/L Carbon Dioxide 25 (21-32) mmol/L Anion Gap 11.0 (6-13) BUN 28 H (6-20) mg/dL Creatinine 0.8 (0.6-1.2) mg/dL Estimated GFR (MDRD) 94 (>89) Glucose 163 H (70-100) mg/dL Calcium 8.8 (8.5-10.3) mg/dL Assessment/Plan - Problem List (1) Fracture of femoral neck, left Impression: Seen on x-ray. Orthopedic surgeon evaluated patient. RCI 0.9%. s/p left hip bipolar replacement 08/01/[address] Guo. He has had emesis post-surgery. Plan: - continue IV hydration - pain control - after care per ortho - PT to evaluate patient today - incentive spirometer Qualifiers: Encounter type: initial encounter Fracture type: closed Qualified Code(s): S72.002A - Fracture of unspecified part of neck of left femur, initial encounter for closed fracture (2) Hypertension Impression: BP improved. Plan: - continue home medications - monitor blood pressure Qualifiers: Hypertension type: essential hypertension Qualified Code(s): I10 - Essential (primary) hypertension (3) Hyponatremia Impression: Sodium 130. Unsure if acute or chronic. No other labwork to compare. Plan: - continue gentle IVF hydration while patient with continue emesis - follow sodium level (4) Elevated liver function tests Impression: ALT/AST, Tbili and alk phos elevated. Patient denies abdominal pain. No previous labwork available for review. Plan: - trend LFTs
--- NOTE | 2018-08-02 09:02 | PROVIDER PROGRESS NOTE ---
Subjective - General Admit Date: 07/31/18 Procedure Date: 08/01/18 Post Op Days: 1 Procedure Performed: left hip bipolar replacement - Review of Systems Wound/Incisions: positive: Dressing dry and intact Musculoskeletal: positive: Joint pain All Other Systems: positive: Reviewed and negative Objective - Patient Data Reviewed Vital Signs: Yes Vital Signs: Vital Signs x48h Temp Pulse Pulse Resp BP Pulse Ox 08/02/18 08:32 36.6 C 82 20 94 08/02/18 05:22 36.6 C 82 16 151/70 H 93 Weight: Weight 07/31/18 08/01/18 08/02/18 23:59 23:59 23:59 Weight (kg) 95.2 kg 94.5 kg 94 kg Intake & Output: Intake and Output Totals x24h 07/31/18 08/01/18 08/02/18 23:59 23:59 23:59 Intake Total 1900 2883.333 766.667 Output Total 670 640 1834 Balance 1500 1973.333 -1308.333 - Lab Results Lab Results: 08/02/18 05:39 08/02/18 05:39 Other Lab Results: Lab Results x24hrs 08/02/18 08/02/18 Range/Units 05:39 05:39 WBC 9.5 (4.8-10.8) x10^3/uL RBC 3.77 L (4.70-6.10) 10^6/uL Hgb 13.0 L (14.0-18.0) g/dL Hct 37.6 L (42.0-52.0) % MCV 99.8 H (80.0-94.0) fL MCH 34.4 H (27.0-31.0) pg MCHC 34.5 (32.0-36.0) g/dL RDW 13.3 (12.0-15.0) % Plt Count 182 (130-450) 10^3/uL MPV 8.0 (7.4-11.4) fL Neut # (Auto) 7.9 H (1.5-6.6) 10^3/uL Lymph # (Auto) 0.9 L (1.5-3.5) 10^3/uL [place] # (Auto) 0.7 (0.0-1.0) 10^3/uL Eos # (Auto) 0.0 (0.0-0.7) 10^3/uL Baso # (Auto) 0.0 (0.0-0.1) 10^3/uL Absolute Nucleated RBC 0.00 x10^3/uL Nucleated RBC % 0.0 /100WBC Sodium 130 L (135-145) mmol/L Potassium 4.4 (3.5-5.0) mmol/L Chloride 94 L (101-111) mmol/L Carbon Dioxide 25 (21-32) mmol/L Anion Gap 11.0 (6-13) BUN 28 H (6-20) mg/dL Creatinine 0.8 (0.6-1.2) mg/dL Estimated GFR (MDRD) 94 (>89) Glucose 163 H (70-100) mg/dL Calcium 8.8 (8.5-10.3) mg/dL - Imaging Results Radiology Imaging: positive: EMP read indepedently - Current Medications Current Medications: Current Medications Generic Name Dose Route Start Last Admin Trade Name Freq PRN Reason Stop Dose Admin Amlodipine Besylate 10 mg 08/01/18 09:00 08/01/18 11:01 Norvasc PO 10 mg DAILY ISAAK Administration Cholecalciferol 2,000 unit 08/01/18 09:00 08/01/18 11:02 Vitamin D3 PO 2,000 unit DAILY ISAAK Administration Cyanocobalamin 1,000 mcg 08/01/18 09:00 08/01/18 11:02 Vitamin B-12 PO 1,000 mcg DAILY ISAAK Administration Sodium Chloride 1,000 mls @ 125 mls/hr 08/01/18 07:03 08/02/18 04:14 Normal Saline 0.9% IV 125 mls/hr .Q8H ISAAK Administration Metoprolol Tartrate 25 mg 07/31/18 21:00 08/01/18 21:10 Lopressor PO 25 mg QPM ISAAK Administration Mineral Oil 1 applic 08/01/18 16:09 08/02/18 05:26 Cavilon TOP 1 applic PRN PRN Administration Skin Care Multivitamins 1 tab 08/01/18 09:00 08/01/18 11:02 Theragran PO 1 tab DAILY ISAAK Administration Ondansetron HCl 4 mg 07/31/18 17:56 08/02/18 01:49 Zofran Inj IVP 4 mg Q6HR PRN Administration Nausea / Vomiting Prochlorperazine Edisylate 10 mg 07/31/18 22:24 08/02/18 02:49 Compazine Inj IVP 10 mg Q4HR PRN Administration Nausea / Vomiting Sodium Chloride 10 ml 07/31/18 14:26 08/01/18 12:07 Normal Saline Flush 0.9% IVP 10 ml PRN PRN Administration NEEDED PER PROVIDER ORDERS Sodium Chloride 10 ml 07/31/18 17:00 08/02/18 00:07 Normal Saline Flush 0.9% IVP Not Given 0100,0900,1700 ISAAK Tizanidine HCl 2 mg 07/31/18 21:00 08/01/18 21:10 Zanaflex PO 2 mg QPM ISAAK Administration - Physical Exam Wound/Incisions: positive: Dressing dry and intact Extremities: positive: Joint swelling Neurologic/Psychiatric: positive: Oriented x3, CN's nml (2-12), Motor nml, Sensation nml, Mood/affect nml Impression/Plan - Problem List Problem List: POD #1 Pt is more comfortable and ready to begin PT He has had excessive vomiting all during the night which might interfere with today's rehab.
[2018-08-02] MEDS: ENOXAPARIN 30 MG/0.3 ML SYRINGE SUBQ SCH (09:23)
[2018-08-02] MEDS: PANTOPRAZOLE 40 MG VIAL IVP SCH (09:23)
[2018-08-02] MEDS: POLYETHYLENE GLYCOL 3350 17 GM PACKET PO SCH (09:24)
[2018-08-02] MEDS: CHOLECALCIFEROL 1,000 UNIT TABLET PO SCH (13:08)
[2018-08-02] MEDS: CYANOCOBALAMIN 500 MCG TABLET PO SCH (13:08)
[2018-08-02] MEDS: MULTIVITAMIN TABLET PO SCH (13:08)
[2018-08-02] MEDS: amLODIPine 5 MG TABLET PO SCH (13:08)
[2018-08-02] MEDS ORDERED: hydrALAZINE INJ 20 MG/ML VIAL IVP PRN (16:59)
[2018-08-02] MEDS ORDERED: METOCLOPRAMIDE 10 MG/2 ML VIAL IVP PRN (18:25)
[2018-08-02] MEDS: tiZANidine 4 MG TABLET PO SCH (20:07)
[2018-08-02] MEDS: METOPROLOL TARTRATE 25 MG TABLET PO SCH (20:07)
[2018-08-03] MEDS: SODIUM CHLORIDE FLUSH 0.9% 10 ML SYRINGE IVP SCH ×3 (00:03→16:31)
[2018-08-03 05:38] LABS: BASOPHILS % (AUTO) 0.3 %; HGB - HEMOGLOBIN 10.4 g/dL (14.0-18.0); LYMPHOCYTES # (AUTO) 1.7 10^3/uL (1.5-3.5); LYMPHOCYTES % (AUTO) 19.7 %; MEAN CORPUSCULAR HGB CONC 35.3 g/dL (32.0-36.0); MEAN CORPUSCULAR VOLUME 99.3 fL (80.0-94.0); MEAN PLATELET VOLUME 7.8 fL (7.4-11.4); MONOCYTES # (AUTO) 0.8 10^3/uL (0.0-1.0); MONOCYTES % (AUTO) 9.1 %; NEUTROPHILS % (AUTO) 70.9 %; PLT - PLATELET COUNT 140 10^3/uL (130-450); RED BLOOD COUNT 2.98 10^6/uL (4.70-6.10); RED CELL DISTRIBUTION WIDTH 13.1 % (12.0-15.0); WHITE BLOOD COUNT 8.4 x10^3/uL (4.8-10.8)
[2018-08-03 05:47] LABS: ALBUMIN 2.6 g/dL (3.2-5.5); BILIRUBIN,TOTAL 1.2 mg/dL (0.2-1.0); CALCIUM 8.2 mg/dL (8.5-10.3); CREATININE 0.7 mg/dL (0.6-1.2); TOTAL PROTEIN 5.2 g/dL (6.7-8.2)
[2018-08-03] MEDS: PANTOPRAZOLE 40 MG VIAL IVP SCH (06:03)
[2018-08-03] MEDS: SODIUM CHLORIDE 0.9% 1,000 ML IV SCH ×2 (06:03→11:31)
[2018-08-03] MEDS: SODIUM CHLORIDE FLUSH 0.9% 10 ML SYRINGE IVP PRN ×2 (06:04→11:31)
[2018-08-03] MEDS ORDERED: SODIUM CHLORIDE 0.9% 500 ML IV ONE (07:10)
[2018-08-03] MEDS: amLODIPine 5 MG TABLET PO SCH (08:29)
[2018-08-03] MEDS: MULTIVITAMIN TABLET PO SCH (08:29)
[2018-08-03] MEDS: CYANOCOBALAMIN 500 MCG TABLET PO SCH (08:29)
[2018-08-03] MEDS: ENOXAPARIN 30 MG/0.3 ML SYRINGE SUBQ SCH (08:29)
[2018-08-03] MEDS: CHOLECALCIFEROL 1,000 UNIT TABLET PO SCH (08:29)
[2018-08-03] MEDS: POLYETHYLENE GLYCOL 3350 17 GM PACKET PO SCH (08:30)
--- NOTE | 2018-08-03 09:03 | PROVIDER PROGRESS NOTE ---
Subjective - Prog Note Date Prog Note Date: 08/03/18 Prog Note Time: 08:15 - Subjective Subjective: Patient with multiple episodes of emesis overnight He was given reglan He reports improved nausea today and would like to eat/drink Had small bowel movement today Denies pain, CP or SOB On RA Current Medications - Current Medications Current Medications: Hydrocodone Bitart/Acetaminophen ([place] 7.5/325) 1 tab PO Q4HR PRN PRN Reason: PAIN Amlodipine Besylate (Norvasc) 10 mg PO DAILY [facility] Last Admin: 08/03/18 08:29 Dose: 10 mg Calcium Carbonate/Glycine (Tums) 500 mg PO TID PRN PRN Reason: Heartburn Last Admin: 08/02/18 16:38 Dose: 500 mg Cholecalciferol (Vitamin D3) 2,000 unit PO DAILY [facility] Last Admin: 08/03/18 08:29 Dose: 2,000 unit Cyanocobalamin (Vitamin B-12) 1,000 mcg PO DAILY [facility] Last Admin: 08/03/18 08:29 Dose: 1,000 mcg Enoxaparin Sodium (Lovenox) 30 mg SUBQ DAILY [facility] Last Admin: 08/03/18 08:29 Dose: 30 mg Hydralazine HCl (Apresoline Inj) 5 mg IVP Q6HR PRN PRN Reason: Blood Pressure Hydromorphone HCl (Dilaudid Inj Syringe) 0.5 mg IVP Q2H PRN PRN Reason: PAIN Sodium Chloride (Normal Saline 0.9%) 1,000 mls @ 125 mls/hr IV .Q8H [facility] Last Admin: 08/03/18 06:03 Dose: 125 mls/hr Metoclopramide HCl (Reglan Inj) 5 mg IVP Q6HR PRN PRN Reason: Nausea / Vomiting Last Admin: 08/02/18 18:36 Dose: 5 mg Metoprolol Tartrate (Lopressor) 25 mg PO QPM [facility] Last Admin: 08/02/18 20:07 Dose: 25 mg Mineral Oil (Cavilon) 1 applic TOP PRN PRN PRN Reason: Skin Care Last Admin: 08/02/18 05:26 Dose: 1 applic Multivitamins (Theragran) 1 tab PO DAILY [facility] Last Admin: 08/03/18 08:29 Dose: 1 tab Ondansetron HCl (Zofran Inj) 4 mg IVP Q6HR PRN PRN Reason: Nausea / Vomiting Last Admin: 08/02/18 13:05 Dose: 4 mg Pantoprazole Sodium (Protonix) 40 mg IVP QDAC [facility] Last Admin: 08/03/18 06:03 Dose: 40 mg Polyethylene Glycol (Miralax) 17 gm PO DAILY [facility] Last Admin: 08/03/18 08:30 Dose: Not Given Sodium Chloride (Normal Saline Flush 0.9%) 10 ml IVP PRN PRN PRN Reason: NEEDED PER PROVIDER ORDERS Last Admin: 08/03/18 06:04 Dose: 10 ml Sodium Chloride (Normal Saline Flush 0.9%) 10 ml IVP 0100,0900,1700 [facility] Last Admin: 08/03/18 08:30 Dose: Not Given Tizanidine HCl (Zanaflex) 2 mg PO QPM [facility] Last Admin: 08/02/18 20:07 Dose: 2 mg Objective - Vital Signs/Intake & Output Reviewed Vital Signs: Yes Vital Signs: Vital Signs x48h Temp Pulse Resp BP Pulse Ox 08/03/18 08:01 36.8 C 64 20 125/56 L 92 08/03/18 04:52 36.9 C 69 16 114/58 L 94 Intake & Output: Intake & Output 07/31/18 08/01/18 08/02/18 08/03/18 23:59 23:59 23:59 23:59 Intake Total 1900 2883.333 3454.167 1000 Output Total 020 719 2212 1150 Balance 1500 1973.333 -380.833 -150 - Objective General Appearance: positive: No acute distress, Alert Eyes Bilateral: positive: Normal inspection, PERRL, EOMI ENT: positive: Dry mucous membranes Neck: positive: Nml inspection, Trachea midline Respiratory: positive: Chest non-tender, No respiratory distress, Breath sounds nml. negative: Wheezes, Rales, Rhonchi Cardiovascular: positive: Regular rate & rhythm, No murmur Peripheral Pulses: 1+ Dorsalis pedis (R), 1+ Dorsalis pedis (L) Abdomen: positive: Non-tender, No organomegaly, Nml bowel sounds, No distention Skin: positive: Warm, Dry Extremities: positive: Pedal edema, Other (left hip surgical dressing c/d/i.) Neurologic/Psychiatric: positive: Oriented x3, CN's nml (2-12), Sensation nml, Mood/affect nml, Weakness - Lab Results Fish Bones: 08/03/18 05:00 08/03/18 05:00 Other Labs: Lab Results x24hrs 08/03/18 08/03/18 Range/Units 05:00 05:00 WBC 8.4 (4.8-10.8) x10^3/uL RBC 2.98 L (4.70-6.10) 10^6/uL Hgb 10.4 L (14.0-18.0) g/dL Hct 29.6 L (42.0-52.0) % MCV 99.3 H (80.0-94.0) fL MCH 35.0 H (27.0-31.0) pg MCHC 35.3 (32.0-36.0) g/dL RDW 13.1 (12.0-15.0) % Plt Count 140 (130-450) 10^3/uL MPV 7.8 (7.4-11.4) fL Neut # (Auto) 6.0 (1.5-6.6) 10^3/uL Lymph # (Auto) 1.7 (1.5-3.5) 10^3/uL [place] # (Auto) 0.8 (0.0-1.0) 10^3/uL Eos # (Auto) 0.0 (0.0-0.7) 10^3/uL Baso # (Auto) 0.0 (0.0-0.1) 10^3/uL Absolute Nucleated RBC 0.00 x10^3/uL Nucleated RBC % 0.0 /100WBC Sodium 134 L (135-145) mmol/L Potassium 4.1 (3.5-5.0) mmol/L Chloride 99 L (101-111) mmol/L Carbon Dioxide 28 (21-32) mmol/L Anion Gap 7.0 (6-13) BUN 26 H (6-20) mg/dL Creatinine 0.7 (0.6-1.2) mg/dL Estimated GFR (MDRD) 109 (>89) Glucose 139 H (70-100) mg/dL Calcium 8.2 L (8.5-10.3) mg/dL Total Bilirubin 1.2 H (0.2-1.0) mg/dL AST 58 H (10-42) IU/L ALT 48 (10-60) IU/L Alkaline Phosphatase 129 H (42-121) IU/L Total Protein 5.2 L (6.7-8.2) g/dL Albumin 2.6 L (3.2-5.5) g/dL Globulin 2.6 (2.1-4.2) g/dL Albumin/Globulin Ratio 1.0 (1.0-2.2) Assessment/Plan - Problem List (1) Fracture of femoral neck, left Impression: Seen on x-ray. Orthopedic surgeon evaluated patient. RCI 0.9%. s/p left hip bipo lar replacement 08/01/[address] Guo. He was made NPO yesterday after he continued to has large volume emesis. KUB yesterday with distended stomach. Reglan was ordered. This morning, the patients nausea has resolved and he would like to try eating/drinking again. He also had a small bowel movement. PT unable to evaluate patient yesterday due to emesis. Plan: - continue IV hydration and give 500 cc bolus IVF -- once able to keep liquids down, will d/c IVF - regular diet - pain control - after care per ortho - PT to evaluate patient today - incentive spirometer - plan to d/c to SNF -- likely 08/04 or 08/05 depending on how eating/drinking go today Qualifiers: Encounter type: initial encounter Fracture type: closed Qualified Code(s): S72.002A - Fracture of unspecified part of neck of left femur, initial encounter for closed fracture (2) Hypertension Impression: BP improved. Plan: - continue home medications - monitor blood pressure Qualifiers: Hypertension type: essential hypertension Qualified Code(s): I10 - Essential (primary) hypertension (3) Hyponatremia Impression: Sodium 134 today. On admission it was 128. Unsure if acute or chronic. No other labwork to compare. Plan: - continue gentle IVF hydration - follow sodium level (4) Elevated liver function tests Impression: ALT/AST, Tbili and alk phos elevated on admission. Patient denies abdominal pain. No previous labwork available for review. ALT now wnl. AST slightly elevated. ALk phos and Tbili improved, but still elevated Plan: - trend LFTs - follow-up outpatient
[2018-08-03] MEDS ORDERED: SODIUM CHLORIDE 0.9% 1,000 ML IV ONE (11:26)
[2018-08-03] MEDS ORDERED: SODIUM CHLORIDE FLUSH 0.9% 10 ML SYRINGE ONE (11:26)
--- NOTE | 2018-08-03 11:26 | PROVIDER PROGRESS NOTE ---
Subjective - General Admit Date: 07/31/18 Procedure Date: 08/01/18 Post Op Days: 2 Procedure Performed: left hip bipolar replacement - Review of Systems Wound/Incisions: positive: Dressing dry and intact Musculoskeletal: positive: Joint pain All Other Systems: positive: Reviewed and negative Objective - Patient Data Reviewed Vital Signs: Yes Vital Signs: Vital Signs x48h Temp Pulse Resp BP Pulse Ox 08/03/18 08:01 36.8 C 64 20 125/56 L 92 08/03/18 04:52 36.9 C 69 16 114/58 L 94 Weight: Weight 08/01/18 08/02/18 08/03/18 23:59 23:59 23:59 Weight (kg) 94.5 kg 94 kg 95 kg Intake & Output: Intake and Output Totals x24h 08/01/18 08/02/18 08/03/18 23:59 23:59 23:59 Intake Total 2883.333 3454.167 1500 Output Total 910 3835 1150 Balance 1973.333 -380.833 350 - Lab Results Lab Results: 08/03/18 05:00 08/03/18 05:00 Other Lab Results: Lab Results x24hrs 08/03/18 08/03/18 Range/Units 05:00 05:00 WBC 8.4 (4.8-10.8) x10^3/uL RBC 2.98 L (4.70-6.10) 10^6/uL Hgb 10.4 L (14.0-18.0) g/dL Hct 29.6 L (42.0-52.0) % MCV 99.3 H (80.0-94.0) fL MCH 35.0 H (27.0-31.0) pg MCHC 35.3 (32.0-36.0) g/dL RDW 13.1 (12.0-15.0) % Plt Count 140 (130-450) 10^3/uL MPV 7.8 (7.4-11.4) fL Neut # (Auto) 6.0 (1.5-6.6) 10^3/uL Lymph # (Auto) 1.7 (1.5-3.5) 10^3/uL [place] # (Auto) 0.8 (0.0-1.0) 10^3/uL Eos # (Auto) 0.0 (0.0-0.7) 10^3/uL Baso # (Auto) 0.0 (0.0-0.1) 10^3/uL Absolute Nucleated RBC 0.00 x10^3/uL Nucleated RBC % 0.0 /100WBC Sodium 134 L (135-145) mmol/L Potassium 4.1 (3.5-5.0) mmol/L Chloride 99 L (101-111) mmol/L Carbon Dioxide 28 (21-32) mmol/L Anion Gap 7.0 (6-13) BUN 26 H (6-20) mg/dL Creatinine 0.7 (0.6-1.2) mg/dL Estimated GFR (MDRD) 109 (>89) Glucose 139 H (70-100) mg/dL Calcium 8.2 L (8.5-10.3) mg/dL Total Bilirubin 1.2 H (0.2-1.0) mg/dL AST 58 H (10-42) IU/L ALT 48 (10-60) IU/L Alkaline Phosphatase 129 H (42-121) IU/L Total Protein 5.2 L (6.7-8.2) g/dL Albumin 2.6 L (3.2-5.5) g/dL Globulin 2.6 (2.1-4.2) g/dL Albumin/Globulin Ratio 1.0 (1.0-2.2) - Current Medications Current Medications: Current Medications Generic Name Dose Route Start Last Admin Trade Name Freq PRN Reason Stop Dose Admin Amlodipine Besylate 10 mg 08/01/18 09:00 08/03/18 08:29 Norvasc PO 10 mg DAILY ISAAK Administration Calcium Carbonate/Glycine 500 mg 08/02/18 01:06 08/02/18 16:38 Tums PO 500 mg TID PRN Administration Heartburn Cholecalciferol 2,000 unit 08/01/18 09:00 08/03/18 08:29 Vitamin D3 PO 2,000 unit DAILY ISAAK Administration Cyanocobalamin 1,000 mcg 08/01/18 09:00 08/03/18 08:29 Vitamin B-12 PO 1,000 mcg DAILY ISAAK Administration Enoxaparin Sodium 30 mg 08/02/18 09:00 08/03/18 08:29 Lovenox SUBQ 30 mg DAILY ISAAK Administration Sodium Chloride 1,000 mls @ 125 mls/hr 08/01/18 07:03 08/03/18 06:03 Normal Saline 0.9% IV 125 mls/hr .Q8H ISAAK Administration Metoclopramide HCl 5 mg 08/02/18 18:25 08/02/18 18:36 Reglan Inj IVP 5 mg Q6HR PRN Administration Nausea / Vomiting Metoprolol Tartrate 25 mg 07/31/18 21:00 08/02/18 20:07 Lopressor PO 25 mg QPM ISAAK Administration Mineral Oil 1 applic 08/01/18 16:09 08/02/18 05:26 Cavilon TOP 1 applic PRN PRN Administration Skin Care Multivitamins 1 tab 08/01/18 09:00 08/03/18 08:29 Theragran PO 1 tab DAILY ISAAK Administration Ondansetron HCl 4 mg 07/31/18 17:56 08/02/18 13:05 Zofran Inj IVP 4 mg Q6HR PRN Administration Nausea / Vomiting Pantoprazole Sodium 40 mg 08/02/18 08:00 08/03/18 06:03 Protonix IVP 40 mg QDAC ISAAK Administration Polyethylene Glycol 17 gm 08/02/18 09:00 08/03/18 08:30 Miralax PO Not Given DAILY ISAAK Sodium Chloride 10 ml 07/31/18 14:26 08/03/18 06:04 Normal Saline Flush 0.9% IVP 10 ml PRN PRN Administration NEEDED PER PROVIDER ORDERS Sodium Chloride 10 ml 07/31/18 17:00 08/03/18 08:30 Normal Saline Flush 0.9% IVP Not Given 0100,0900,1700 ISAAK Tizanidine HCl 2 mg 07/31/18 21:00 08/02/18 20:07 Zanaflex PO 2 mg QPM ISAAK Administration - Physical Exam Wound/Incisions: positive: Dressing dry and intact Extremities: positive: Non-tender, Full ROM, Nml appearance Neurologic/Psychiatric: positive: Oriented x3, CN's nml (2-12), Motor nml, Sensation nml, Mood/affect nml Impression/Plan - Problem List Problem List: Ortho POD# 4 Pt is doing well. He is not having nausea/vomiting todayl He has sat up and in a chair but is moving slowly with ambulation. plan to prepare for SNF placement.
[2018-08-03] MEDS ORDERED: oxyCODONE 5 MG TABLET PO PRN (11:31)
[2018-08-03] MEDS: HYDROcod/ACETAM 7.5 MG/325 MG TABLET PO PRN (11:35)
[2018-08-03] MEDS: tiZANidine 4 MG TABLET PO SCH (21:01)
[2018-08-03] MEDS: METOPROLOL TARTRATE 25 MG TABLET PO SCH (21:02)
[2018-08-04] MEDS: MIN OIL/DIMETHICON/COCONUT OIL 92 GM TUBE TOP PRN (03:28)
[2018-08-04 05:51] LABS: BASOPHILS % (AUTO) 0.7 %; EOSINOPHILS # (AUTO) 0.1 10^3/uL (0.0-0.7); EOSINOPHILS % (AUTO) 1.5 %; HGB - HEMOGLOBIN 10.7 g/dL (14.0-18.0); LYMPHOCYTES # (AUTO) 1.8 10^3/uL (1.5-3.5); LYMPHOCYTES % (AUTO) 26.9 %; MEAN CORPUSCULAR HEMOGLOBIN 34.9 pg (27.0-31.0); MEAN CORPUSCULAR HGB CONC 35.3 g/dL (32.0-36.0); MONOCYTES # (AUTO) 0.6 10^3/uL (0.0-1.0); MONOCYTES % (AUTO) 9.2 %; NEUTROPHILS # (AUTO) 4.1 10^3/uL (1.5-6.6); NEUTROPHILS % (AUTO) 61.7 %; PLT - PLATELET COUNT 133 10^3/uL (130-450); RED BLOOD COUNT 3.06 10^6/uL (4.70-6.10); WHITE BLOOD COUNT 6.7 x10^3/uL (4.8-10.8)
[2018-08-04 06:02] LABS: ALBUMIN 2.8 g/dL (3.2-5.5); ALBUMIN/GLOBULIN RATIO 0.9 (1.0-2.2); BILIRUBIN,TOTAL 1.2 mg/dL (0.2-1.0); CALCIUM 8.5 mg/dL (8.5-10.3); CREATININE 0.7 mg/dL (0.6-1.2); TOTAL PROTEIN 5.8 g/dL (6.7-8.2)
--- NOTE | 2018-08-04 07:38 | Discharge Plan ---
"Discharge Plan for SNF / [facility]RECTION - Discharge Plan And Transition Orders Disposition: SNF DC/Xfer Condition: Good Allergies and Adverse Reactions: Allergies Allergy/AdvReac Type Severity Reaction Status Date / Time No Known Drug Allergies Allergy Verified 07/31/18 11:33 - SNF / CORRECTION Transition Orders Admit to (Facility): [facility] Discharge Diagnosis: Left Femoral Neck Fracture Medicare Certification Statement: I certify that Post Hospital fci care is medically necessary on a continuing basis for any of the conditions for which she/he is receiving care during hospitalization. Notify PCP of admission and forward orders to primary provider for signature. Weight on admission and: Weekly Other Notification Orders: Call PCP immediately if patient develops dyspnea, chest pain/tightness or edema. House Bowel Program: Yes Additional Bowel Program Orders: If no BM after 2 days, nurse may give M.O.M. 30ml PO PRN and/or ducolax Supp 1 IN and/or BRIAN 250mg P.O., and/or senna 1-2 tabs PO. On day 3 nurse may give repeat above order until residents constipation is resolved. Annual Influenza Vaccine (between Jan 15 and August 14): Yes Lab Tests or X-ray Orders: CBC and CMP within 2-3 days of admission to SNF Orthopedic Orders: WBAT with PT. Dressing changed 08/04/2018, to be in place for the next 7 days. Return to ortho clinic, Dr. Guo in 3-4 weeks. Continue aspirin for 4 weeks Medication Orders: PLEASE REFER TO THE DISCHARGE MEDICATION LIST. - Medications New Prescriptions: HYDROcodone/ACET 7.5/325 [[place] 7.5/325] 1 tab PO Q4HR PRN #15 tablet PRN Reason: Pain Acetaminophen 500 mg PO QPM #30 tablet amLODIPine [Norvasc] 10 mg PO DAILY #30 tablet Calcium Carbonate [Tums (Calcium Carbonate 500mg)] 500 mg PO BID #30 tablet Cholecalciferol (Vitamin D3) [Vitamin D3] 2,000 unit PO DAILY #30 capsule Cyanocobalamin (Vitamin B-12) [Vitamin B-12] 1,000 mcg PO DAILY #30 capsule Metoprolol Tartrate 25 mg PO QPM #30 tablet Multivitamin [Theragran] 1 tab PO DAILY #30 tablet Ondansetron Odt [Zofran Odt] 4 mg TL Q6H PRN #10 tablet PRN Reason: Nausea / Vomiting Pantoprazole [Protonix] 40 mg PO QDAC #30 tablet Tizanidine HCl 2 mg PO QPM #30 capsule Vit C/E/Zinc/Lutein/Zeaxanthin [Ocuvite Eye Health Gummies] 1 tab PO DAILY #30 tab.chew - Diet Texture: Regular Liquids: Thin - Therapies | Activity Therapy: Evaluation | Treat if indicated: PT, OT Rehabilitation Potential: Maximize functional status Activity: Wt Bearing as Tolerated Weight Bearing: Full Weight Assistance Devices: Wheelchair, Walker Follow Up: Follow-up with Dr. Guo Follow-up with PCP per SNF provider"
--- NOTE | 2018-08-04 07:38 | DISCHARGE SUMMARY ---
Discharge Summary Condition at Discharge: Serious - ALLERGIES Allergies/Adverse Reactions: Allergies Allergy/AdvReac Type Severity Reaction Status Date / Time No Known Drug Allergies Allergy Verified 07/31/18 11:33 - MEDICATIONS Home Medications: Ambulatory Orders Medication Instructions Recorded Confirmed Acetaminophen 500 mg PO QPM 07/31/18 07/31/18 Cholecalciferol (Vitamin D3) 2,000 unit PO DAILY 07/31/18 07/31/18 [Vitamin D] Cyanocobalamin (Vitamin B-12) 1,000 mcg PO DAILY 07/31/18 07/31/18 [Vitamin B-12] Metoprolol Tartrate 25 mg PO QPM 07/31/18 07/31/18 Multivitamin [Theragran] 1 tab PO DAILY 07/31/18 07/31/18 Oxycodone HCl/Acetaminophen 1 - 2 tab PO Q6H PRN 07/31/18 07/31/18 [Oxycodone-Acetaminophen 5-325] Potassium Chloride 20 meq PO DAILY 07/31/18 07/31/18 Tizanidine HCl 2 mg PO QPM 07/31/18 07/31/18 Vit C/E/Zinc/Lutein/Zeaxanthin 1 tab PO DAILY 07/31/18 07/31/18 [facility] amLODIPine [Norvasc] 10 mg PO DAILY 07/31/18 07/31/18 - LABS Result Diagrams: 08/04/18 05:40 08/04/18 05:40
[2018-08-04] MEDS: HYDROcod/ACETAM 7.5 MG/325 MG TABLET PO PRN (08:29)
[2018-08-04] MEDS: amLODIPine 5 MG TABLET PO SCH (08:30)
[2018-08-04] MEDS: MULTIVITAMIN TABLET PO SCH (08:30)
[2018-08-04] MEDS: PANTOPRAZOLE 40 MG TABLET PO SCH (08:30)
[2018-08-04] MEDS: CYANOCOBALAMIN 500 MCG TABLET PO SCH (08:30)
[2018-08-04] MEDS: CHOLECALCIFEROL 1,000 UNIT TABLET PO SCH (08:30)
[2018-08-04] MEDS: ENOXAPARIN 30 MG/0.3 ML SYRINGE SUBQ SCH (08:30)
[2018-08-04] MEDS: POLYETHYLENE GLYCOL 3350 17 GM PACKET PO SCH (08:31)
[2018-08-04] MEDS: SODIUM CHLORIDE FLUSH 0.9% 10 ML SYRINGE IVP SCH ×3 (08:35→17:36)
--- NOTE | 2018-08-04 08:38 | PROVIDER PROGRESS NOTE ---
Subjective - General Admit Date: 07/31/18 Procedure Date: 08/01/18 Post Op Days: 3 Procedure Performed: left hip bipolar replacement - Review of Systems Wound/Incisions: positive: Dressing dry and intact Musculoskeletal: positive: Joint pain All Other Systems: positive: Reviewed and negative Objective - Patient Data Reviewed Vital Signs: Yes Vital Signs: Vital Signs x48h Temp Pulse Resp BP Pulse Ox 08/04/18 05:00 36.9 C 62 16 127/57 L 93 Weight: Weight 08/02/18 08/03/18 08/04/18 23:59 23:59 23:59 Weight (kg) 94 kg 95 kg 95 kg Intake & Output: Intake and Output Totals x24h 08/02/18 08/03/18 08/04/18 23:59 23:59 23:59 Intake Total 3454.167 4559.333 440 Output Total 3835 2650 850 Balance -882.664 5972.333 -410 - Lab Results Lab Results: 08/04/18 05:40 08/04/18 05:40 Other Lab Results: Lab Results x24hrs 08/04/18 08/04/18 Range/Units 05:40 05:40 WBC 6.7 (4.8-10.8) x10^3/uL RBC 3.06 L (4.70-6.10) 10^6/uL Hgb 10.7 L (14.0-18.0) g/dL Hct 30.4 L (42.0-52.0) % MCV 99.0 H (80.0-94.0) fL MCH 34.9 H (27.0-31.0) pg MCHC 35.3 (32.0-36.0) g/dL RDW 13.0 (12.0-15.0) % Plt Count 133 (130-450) 10^3/uL MPV 7.0 L (7.4-11.4) fL Neut # (Auto) 4.1 (1.5-6.6) 10^3/uL Lymph # (Auto) 1.8 (1.5-3.5) 10^3/uL [place] # (Auto) 0.6 (0.0-1.0) 10^3/uL Eos # (Auto) 0.1 (0.0-0.7) 10^3/uL Baso # (Auto) 0.0 (0.0-0.1) 10^3/uL Absolute Nucleated RBC 0.00 x10^3/uL Nucleated RBC % 0.1 /100WBC Sodium 132 L (135-145) mmol/L Potassium 3.5 (3.5-5.0) mmol/L Chloride 98 L (101-111) mmol/L Carbon Dioxide 27 (21-32) mmol/L Anion Gap 7.0 (6-13) BUN 20 (6-20) mg/dL Creatinine 0.7 (0.6-1.2) mg/dL Estimated GFR (MDRD) 109 (>89) Glucose 119 H (70-100) mg/dL Calcium 8.5 (8.5-10.3) mg/dL Total Bilirubin 1.2 H (0.2-1.0) mg/dL AST 73 H (10-42) IU/L ALT 58 (10-60) IU/L Alkaline Phosphatase 159 H (42-121) IU/L Total Protein 5.8 L (6.7-8.2) g/dL Albumin 2.8 L (3.2-5.5) g/dL Globulin 3.0 (2.1-4.2) g/dL Albumin/Globulin Ratio 0.9 L (1.0-2.2) - Current Medications Current Medications: Current Medications Generic Name Dose Route Start Last Admin Trade Name Freq PRN Reason Stop Dose Admin Hydrocodone Bitart/Acetaminophen 1 tab 08/01/18 15:09 08/04/18 08:29 [place] 7.5/325 PO 1 tab Q4HR PRN Administration PAIN Amlodipine Besylate 10 mg 08/01/18 09:00 08/04/18 08:30 Norvasc PO 10 mg DAILY ISAAK Administration Calcium Carbonate/Glycine 500 mg 08/02/18 01:06 08/02/18 16:38 Tums PO 500 mg TID PRN Administration Heartburn Cholecalciferol 2,000 unit 08/01/18 09:00 08/04/18 08:30 Vitamin D3 PO 2,000 unit DAILY ISAAK Administration Cyanocobalamin 1,000 mcg 08/01/18 09:00 08/04/18 08:30 Vitamin B-12 PO 1,000 mcg DAILY ISAAK Administration Enoxaparin Sodium 30 mg 08/02/18 09:00 08/04/18 08:30 Lovenox SUBQ 30 mg DAILY ISAAK Administration Metoclopramide HCl 5 mg 08/02/18 18:25 08/02/18 18:36 Reglan Inj IVP 5 mg Q6HR PRN Administration Nausea / Vomiting Metoprolol Tartrate 25 mg 07/31/18 21:00 08/03/18 21:02 Lopressor PO 25 mg QPM ISAAK Administration Mineral Oil 1 applic 08/01/18 16:09 08/04/18 03:28 Cavilon TOP 1 applic PRN PRN Administration Skin Care Multivitamins 1 tab 08/01/18 09:00 08/04/18 08:30 Theragran PO 1 tab DAILY ISAAK Administration Ondansetron HCl 4 mg 07/31/18 17:56 08/02/18 13:05 Zofran Inj IVP 4 mg Q6HR PRN Administration Nausea / Vomiting Pantoprazole Sodium 40 mg 08/04/18 07:00 08/04/18 08:30 Protonix PO 40 mg QDAC ISAAK Administration Polyethylene Glycol 17 gm 08/02/18 09:00 08/04/18 08:31 Miralax PO 17 gm DAILY ISAAK Administration Sodium Chloride 10 ml 07/31/18 14:26 08/03/18 11:31 Normal Saline Flush 0.9% IVP 10 ml PRN PRN Administration NEEDED PER PROVIDER ORDERS Sodium Chloride 10 ml 07/31/18 17:00 08/04/18 08:35 Normal Saline Flush 0.9% IVP 10 ml 0100,0900,1700 ISAAK Administration Tizanidine HCl 2 mg 07/31/18 21:00 08/03/18 21:01 Zanaflex PO 2 mg QPM ISAAK Administration - Physical Exam Wound/Incisions: positive: Healing well General Appearance: positive: No acute distress Extremities: positive: Joint swelling Neurologic/Psychiatric: positive: Oriented x3, CN's nml (2-12), Motor nml, Sensation nml, Mood/affect nml Impression/Plan - Problem List Problem List: POD # 3 Pt seems ready for SNF. Wound is clean and healing well Will remain WBTT with PT new dressing applied and to be left in place next 7 days. RTC ORTHo within 3-4 wks. To remain on ASA 4 wks.
--- NOTE | 2018-08-04 14:39 | PROVIDER PROGRESS NOTE ---
Subjective - Prog Note Date Prog Note Date: 08/04/18 Prog Note Time: 07:45 - Subjective Subjective: No further nausea or emesis Reports a good appetite Dressing changed by ortho Current Medications - Current Medications Current Medications: Hydrocodone Bitart/Acetaminophen ([place] 7.5/325) 1 tab PO Q4HR PRN PRN Reason: PAIN Last Admin: 08/04/18 08:29 Dose: 1 tab Amlodipine Besylate (Norvasc) 10 mg PO DAILY [facility] Last Admin: 08/04/18 08:30 Dose: 10 mg Calcium Carbonate/Glycine (Tums) 500 mg PO TID PRN PRN Reason: Heartburn Last Admin: 08/02/18 16:38 Dose: 500 mg Cholecalciferol (Vitamin D3) 2,000 unit PO DAILY [facility] Last Admin: 08/04/18 08:30 Dose: 2,000 unit Cyanocobalamin (Vitamin B-12) 1,000 mcg PO DAILY [facility] Last Admin: 08/04/18 08:30 Dose: 1,000 mcg Enoxaparin Sodium (Lovenox) 30 mg SUBQ DAILY [facility] Last Admin: 08/04/18 08:30 Dose: 30 mg Hydralazine HCl (Apresoline Inj) 5 mg IVP Q6HR PRN PRN Reason: Blood Pressure Hydromorphone HCl (Dilaudid Inj Syringe) 0.5 mg IVP Q2H PRN PRN Reason: PAIN Metoclopramide HCl (Reglan Inj) 5 mg IVP Q6HR PRN PRN Reason: Nausea / Vomiting Last Admin: 08/02/18 18:36 Dose: 5 mg Metoprolol Tartrate (Lopressor) 25 mg PO QPM [facility] Last Admin: 08/03/18 21:02 Dose: 25 mg Mineral Oil (Cavilon) 1 applic TOP PRN PRN PRN Reason: Skin Care Last Admin: 08/04/18 03:28 Dose: 1 applic Multivitamins (Theragran) 1 tab PO DAILY [facility] Last Admin: 08/04/18 08:30 Dose: 1 tab Ondansetron HCl (Zofran Inj) 4 mg IVP Q6HR PRN PRN Reason: Nausea / Vomiting Last Admin: 08/02/18 13:05 Dose: 4 mg Pantoprazole Sodium (Protonix) 40 mg PO QDAC [facility] Last Admin: 08/04/18 08:30 Dose: 40 mg Polyethylene Glycol (Miralax) 17 gm PO DAILY [facility] Last Admin: 08/04/18 08:31 Dose: 17 gm Sodium Chloride (Normal Saline Flush 0.9%) 10 ml IVP PRN PRN PRN Reason: NEEDED PER PROVIDER ORDERS Last Admin: 08/03/18 11:31 Dose: 10 ml Sodium Chloride (Normal Saline Flush 0.9%) 10 ml IVP 0100,0900,1700 [facility] Last Admin: 08/04/18 12:00 Dose: Not Given Tizanidine HCl (Zanaflex) 2 mg PO QPM [facility] Last Admin: 08/03/18 21:01 Dose: 2 mg Objective - Vital Signs/Intake & Output Reviewed Vital Signs: Yes Vital Signs: Vital Signs x48h Temp Pulse Resp BP Pulse Ox 08/04/18 13:00 37.2 C 85 14 136/59 H 08/04/18 08:36 37.2 C 71 18 149/58 H 96 Intake & Output: Intake & Output 08/01/18 08/02/18 08/03/18 08/04/18 23:59 23:59 23:59 23:59 Intake Total 2883.333 3454.167 4559.333 1360 Output Total 910 3835 2650 1325 Balance 1973.333 -839.247 4545.333 35 - Objective General Appearance: positive: No acute distress, Alert Eyes Bilateral: positive: Normal inspection, PERRL, EOMI ENT: positive: ENT inspection nml, Pharynx nml, No signs of dehydration Neck: positive: Nml inspection, Trachea midline Respiratory: positive: Chest non-tender, No respiratory distress, Breath sounds nml Cardiovascular: positive: Regular rate & rhythm, No murmur, No gallop Peripheral Pulses: 2+ Dorsalis pedis (R), 2+ Dorsalis pedis (L) Abdomen: positive: Non-tender, No organomegaly, Nml bowel sounds, No distention Skin: positive: Warm, Dry Extremities: positive: Non-tender, Nml appearance, Pedal edema, Other (left hip surgical dressing c/d/i) Neurologic/Psychiatric: positive: Oriented x3, CN's nml (2-12), Sensation nml, Mood/affect nml, Weakness - Lab Results Fish Bones: 08/04/18 05:40 08/04/18 05:40 Other Labs: Lab Results x24hrs 08/04/18 08/04/18 Range/Units 05:40 05:40 WBC 6.7 (4.8-10.8) x10^3/uL RBC 3.06 L (4.70-6.10) 10^6/uL Hgb 10.7 L (14.0-18.0) g/dL Hct 30.4 L (42.0-52.0) % MCV 99.0 H (80.0-94.0) fL MCH 34.9 H (27.0-31.0) pg MCHC 35.3 (32.0-36.0) g/dL RDW 13.0 (12.0-15.0) % Plt Count 133 (130-450) 10^3/uL MPV 7.0 L (7.4-11.4) fL Neut # (Auto) 4.1 (1.5-6.6) 10^3/uL Lymph # (Auto) 1.8 (1.5-3.5) 10^3/uL [place] # (Auto) 0.6 (0.0-1.0) 10^3/uL Eos # (Auto) 0.1 (0.0-0.7) 10^3/uL Baso # (Auto) 0.0 (0.0-0.1) 10^3/uL Absolute Nucleated RBC 0.00 x10^3/uL Nucleated RBC % 0.1 /100WBC Sodium 132 L (135-145) mmol/L Potassium 3.5 (3.5-5.0) mmol/L Chloride 98 L (101-111) mmol/L Carbon Dioxide 27 (21-32) mmol/L Anion Gap 7.0 (6-13) BUN 20 (6-20) mg/dL Creatinine 0.7 (0.6-1.2) mg/dL Estimated GFR (MDRD) 109 (>89) Glucose 119 H (70-100) mg/dL Calcium 8.5 (8.5-10.3) mg/dL Total Bilirubin 1.2 H (0.2-1.0) mg/dL AST 73 H (10-42) IU/L ALT 58 (10-60) IU/L Alkaline Phosphatase 159 H (42-121) IU/L Total Protein 5.8 L (6.7-8.2) g/dL Albumin 2.8 L (3.2-5.5) g/dL Globulin 3.0 (2.1-4.2) g/dL Albumin/Globulin Ratio 0.9 L (1.0-2.2) Assessment/Plan - Problem List (1) Fracture of femoral neck, left Impression: Seen on x-ray. Orthopedic surgeon evaluated patient. RCI 0.9%. s/p left hip bipolar replacement 08/01/[address] Guo. He was made NPO yesterday after he continued to has large volume emesis. KUB yesterday with distended stomach. Reglan was ordered. This morning, the patients nausea has resolved and he would like to try eating/drinking again. He also had a small bowel movement. PT unable to evaluate patient yesterday due to emesis. Plan: - remove redding today - regular diet - pain control - after care per ortho -- WBAT, dressing to be in place for 7 days, ASA for 4 weeks, RTC in 3-4 weeks - incentive spirometer - plans to d/c to SNF today, although facility unable to accept since approval came late in the day Qualifiers: Encounter type: initial encounter Fracture type: closed Qualified Code(s): S72.002A - Fracture of unspecified part of neck of left femur, initial encounter for closed fracture (2) Hypertension Impression: BP improved. Plan: - continue home medications - monitor blood pressure Qualifiers: Hypertension type: essential hypertension Qualified Code(s): I10 - Essential (primary) hypertension (3) Hyponatremia Impression: Sodium 132 today. On admission it was 128. Unsure if acute or chronic. No other labwork to compare. He is asymptomatic Plan: - follow sodium level (4) Elevated liver function tests Impression: ALT/AST, Tbili and alk phos elevated on admission. Patient denies abdominal pain. No previous labwork available for review. ALT now wnl. AST slightly elevated. ALk phos and Tbili improved, but still elevated Plan: - follow-up outpatient
[2018-08-04] MEDS: tiZANidine 4 MG TABLET PO SCH (20:32)
[2018-08-04] MEDS: METOPROLOL TARTRATE 25 MG TABLET PO SCH (20:33)
[2018-08-05] MEDS: SODIUM CHLORIDE FLUSH 0.9% 10 ML SYRINGE IVP SCH ×2 (05:33→11:32)
[2018-08-05] MEDS: PANTOPRAZOLE 40 MG TABLET PO SCH (07:03)
[2018-08-05] MEDS ORDERED: ONDANSETRON ODT 4 MG TABLET TL PRN (07:21)
--- NOTE | 2018-08-05 07:22 | DISCHARGE SUMMARY ---
"Discharge Summary Admit Date: 07/31/18 Discharge Date: 08/05/18 Discharging Provider: Leana NUNEZ Primary Care Provider: Dr. Kathi New Code Status: Attempt Resuscitation Condition at Discharge: Good Discharge Disposition: SNF DC/Xfer Discharge Facility Name: [facility] - DIAGNOSES Admission Diagnoses: (1) Fracture of femoral neck, left (2) Hypertension (3) Hyponatremia (4) Elevated liver function tests (5) Full code status Discharge Diagnoses with Status of Each Condition: (1) Fracture of femoral neck, left, s/p surgery (2) Hypertension, stable (3) Hyponatremia, stable (4) Elevated liver function tests, improved - HPI History of Present Illness: Mr. [place] is a 77 year old gentleman with a PMH significant for stroke in 2015 and hypertension. On 07/29/2018, he sustained a fall at his Assisted Living Facility. He presented to the ER that day where left knee x-rays were completed and negative for acute abnormalities. He returned to his [facility] and continued to complain to left knee pain. He noticed left hip pain and he was unable to bear weight, so he presented to the ER today for further evaluation. The fall he sustained a 07/29/2018 at the [facility] occurred when he was asked to stand up on the scale to be weighed. Prior to this day, he was weighed while sitting in his wheelchair. Nevertheless, he stood up, held onto the bar and as he was moving his left leg, it slipped off the edge of the scale and he fell. Workup in the ER today revealed a left femoral neck fracture. He is being admitted to the hospital for surgical repair. Patient wishes to be a full code. - CONSULTS | PROCEDURES Consultations: Dr. Gilmar Guo, orthopedic surgeon Procedures: Left hip bipolar replacement 08/01/2018 - HOSPITAL COURSE Hospital Course: (1) Fracture of femoral neck, left Seen on x-ray. Orthopedic surgeon evaluated patient. RCI 0.9%. s/p left hip bipolar replacement 08/01/[address] Guo. Developed nausea/vomiting post- op. KUB obtained with distended stomach. Reglan was ordered. His nausea has since resolved. He is tolerating a PO diet without any issues. Aftercare per ortho: WBAT, dressing changed on 08/04/2018 and to be in place for 7 days, ASA for 4 weeks, RTC in 3-4 weeks. Incentive spirometer (2) Hypertension Stable. He was continued on his home antihypertensive medication. (3) Hyponatremia Sodium 132 08/04/2018. On admission it was 128. Likely chronic in nature. No other labwork to compare. He is asymptomatic (4) Elevated liver function tests Impression: ALT/AST, Tbili and alk phos elevated on admission. Patient denies abdominal pain. No previous labwork available for review. ALT now wnl. AST slightly elevated. ALk phos and Tbili improved, but still elevated. - ALLERGIES Allergies/Adverse Reactions: Allergies Allergy/AdvReac Type Severity Reaction Status Date / Time No Known Drug Allergies Allergy Verified 07/31/18 11:33 - MEDICATIONS Home Medications: Ambulatory Orders Medication Instructions Recorded Confirmed Acetaminophen 500 mg PO QPM #30 tablet 08/04/18 Calcium Carbonate [Tums (Calcium 500 mg PO BID #30 tablet 08/04/18 Carbonate 500mg)] Cholecalciferol (Vitamin D3) 2,000 unit PO DAILY #30 capsule 08/04/18 [Vitamin D3] Cyanocobalamin (Vitamin B-12) 1,000 mcg PO DAILY #30 capsule 08/04/18 [Vitamin B-12] HYDROcodone/ACET 7.5/325 [[place] 1 tab PO Q4HR PRN #15 tablet 08/04/18 7.5/325] Metoprolol Tartrate 25 mg PO QPM #30 tablet 08/04/18 Multivitamin [Theragran] 1 tab PO DAILY #30 tablet 08/04/18 Ondansetron Odt [Zofran Odt] 4 mg TL Q6H PRN #10 tablet 08/04/18 Pantoprazole [Protonix] 40 mg PO QDAC #30 tablet 08/04/18 Tizanidine HCl 2 mg PO QPM #30 capsule 08/04/18 Vit C/E/Zinc/Lutein/Zeaxanthin 1 tab PO DAILY #30 tab.chew 08/04/18 [Ocuvite Eye Health Gummies] amLODIPine [Norvasc] 10 mg PO DAILY #30 tablet 08/04/18 - PHYSICAL EXAM AT DISCHARGE Physical Exam Other/Comments: General Appearance: positive: No acute distress, Alert Eyes Bilateral: positive: Normal inspection, PERRL, EOMI ENT: positive: ENT inspection nml, Pharynx nml, No signs of dehydration Neck: positive: Nml inspection, Trachea midline Respiratory: positive: Chest non-tender, No respiratory distress, Breath sounds nml Cardiovascular: positive: Regular rate & rhythm, No murmur, No gallop Peripheral Pulses: 2+ Dorsalis pedis (R), 2+ Dorsalis pedis (L) Abdomen: positive: Non-tender, No organomegaly, Nml bowel sounds, No distention Skin: positive: Warm, Dry Extremities: positive: Non-tender, Nml appearance, Pedal edema, Other (left hip surgical dressing c/d/i) Neurologic/Psychiatric: positive: Oriented x3, CN's nml (2-12), Sensation nml, Mood/affect nml, Weakness - LABS Result Diagrams: 08/04/18 05:40 08/04/18 05:40 Other Lab Results: Laboratory Tests 07/31/18 07/31/18 07/31/18 12:30 12:30 12:30 WBC 9.0 RBC 4.32 L Hgb 14.9 Hct 42.2 MCV 97.8 H MCH 34.6 H MCHC 35.4 RDW 13.2 Plt Count 152 MPV 8.3 Neut # (Auto) 6.7 H Lymph # (Auto) 1.4 L [place] # (Auto) 0.6 Eos # (Auto) 0.1 Baso # (Auto) 0.2 H Absolute Nucleated RBC 0.02 Nucleated RBC % 0.2 PT 16.6 H INR 1.5 H Sodium 128 L Potassium 4.1 Chloride 94 L Carbon Dioxide 24 Anion Gap 10.0 BUN 16 Creatinine 0.8 Estimated GFR (MDRD) 94 Glucose 167 H Calcium 9.2 Total Bilirubin 2.2 H AST 80 H ALT 75 H Alkaline Phosphatase 203 H Total Protein 7.7 Albumin 3.7 Globulin 4.0 Albumin/Globulin Ratio 0.9 L Lipase 34 Blood Type Blood Type Recheck Antibody Screen 07/31/18 07/31/18 08/01/18 12:30 12:30 06:06 WBC 10.2 RBC 4.30 L Hgb 14.8 Hct 42.8 MCV 99.6 H MCH 34.4 H MCHC 34.6 RDW 13.4 Plt Count 157 MPV 8.3 Neut # (Auto) 8.5 H Lymph # (Auto) 0.8 L [place] # (Auto) 0.8 Eos # (Auto) 0.0 Baso # (Auto) 0.1 Absolute Nucleated RBC 0.00 Nucleated RBC % 0.0 PT INR Sodium Potassium Chloride Carbon Dioxide Anion Gap BUN Creatinine Estimated GFR (MDRD) Glucose Calcium Total Bilirubin AST ALT Alkaline Phosphatase Total Protein Albumin Globulin Albumin/Globulin Ratio Lipase Blood Type A POSITIVE Blood Type Recheck A POSITIVE Antibody Screen NEGATIVE 08/01/18 08/01/18 08/02/18 06:06 06:06 05:39 WBC 9.5 RBC 3.77 L Hgb 13.0 L Hct 37.6 L MCV 99.8 H MCH 34.4 H MCHC 34.5 RDW 13.3 Plt Count 182 MPV 8.0 Neut # (Auto) 7.9 H Lymph # (Auto) 0.9 L [place] # (Auto) 0.7 Eos # (Auto) 0.0 Baso # (Auto) 0.0 Absolute Nucleated RBC 0.00 Nucleated RBC % 0.0 PT 15.8 H INR 1.4 H Sodium 129 L Potassium 4.6 Chloride 93 L Carbon Dioxide 25 Anion Gap 11.0 BUN 28 H Creatinine 1.1 Estimated GFR (MDRD) 65 L Glucose 152 H Calcium 9.6 Total Bilirubin 2.3 H AST 71 H ALT 72 H Alkaline Phosphatase 195 H Total Protein 7.8 Albumin 3.8 Globulin 4.0 Albumin/Globulin Ratio 1.0 Lipase Blood Type Blood Type Recheck Antibody Screen 08/02/18 08/03/18 08/03/18 05:39 05:00 05:00 WBC 8.4 RBC 2.98 L Hgb 10.4 L Hct 29.6 L MCV 99.3 H MCH 35.0 H MCHC 35.3 RDW 13.1 Plt Count 140 MPV 7.8 Neut # (Auto) 6.0 Lymph # (Auto) 1.7 [place] # (Auto) 0.8 Eos # (Auto) 0.0 Baso # (Auto) 0.0 Absolute Nucleated RBC 0.00 Nucleated RBC % 0.0 PT INR Sodium 130 L 134 L Potassium 4.4 4.1 Chloride 94 L 99 L Carbon Dioxide 25 28 Anion Gap 11.0 7.0 BUN 28 H 26 H Creatinine 0.8 0.7 Estimated GFR (MDRD) 94 109 Glucose 163 H 139 H Calcium 8.8 8.2 L Total Bilirubin 1.2 H AST 58 H ALT 48 Alkaline Phosphatase 129 H Total Protein 5.2 L Albumin 2.6 L Globulin 2.6 Albumin/Globulin Ratio 1.0 Lipase Blood Type Blood Type Recheck Antibody Screen 08/04/18 08/04/18 05:40 05:40 WBC 6.7 RBC 3.06 L Hgb 10.7 L Hct 30.4 L MCV 99.0 H MCH 34.9 H MCHC 35.3 RDW 13.0 Plt Count 133 MPV 7.0 L Neut # (Auto) 4.1 Lymph # (Auto) 1.8 [place] # (Auto) 0.6 Eos # (Auto) 0.1 Baso # (Auto) 0.0 Absolute Nucleated RBC 0.00 Nucleated RBC % 0.1 PT INR Sodium 132 L Potassium 3.5 Chloride 98 L Carbon Dioxide 27 Anion Gap 7.0 BUN 20 Creatinine 0.7 Estimated GFR (MDRD) 109 Glucose 119 H Calcium 8.5 Total Bilirubin 1.2 H AST 73 H ALT 58 Alkaline Phosphatase 159 H Total Protein 5.8 L Albumin 2.8 L Globulin 3.0 Albumin/Globulin Ratio 0.9 L Lipase Blood Type Blood Type Recheck Antibody Screen - DIAGNOSTIC IMAGING Diagnostic Imaging Results: Final report reviewed Diagnostic Imaging Results Comments: 2-view Left Hip X-ray 07/31/2018: Positive for a left femoral neck fracture 1-view CXR 07/31/2018: Negative for acute cardiopulmonary abnormality KUB 08/02/2018: 1. Severe gaseous distention of the stomach. In the recent postoperative setting, this probably represents sequela of gastric hypomotility. 2. No radiographic evidence of SBO - FOLLOW UP Follow Up: Follow-up with Dr. Guo in 3-4 weeks Follow-up with PCP per SNF provider - TIME SPENT Time Spent in Discharge (Minutes): 45"
--- NOTE | 2018-08-05 07:22 | Discharge Plan ---
"Discharge Plan for SNF / SKILLED NURSING - Discharge Plan And Transition Orders Disposition: 03 SNF DC/Xfer Condition: Good Allergies and Adverse Reactions: Allergies Allergy/AdvReac Type Severity Reaction Status Date / Time No Known Drug Allergies Allergy Verified 07/31/18 11:33 - SNF / SKILLED NURSING Transition Orders Admit to (Facility): [facility] Discharge Diagnosis: Left Femoral Neck Fracture Medicare Certification Statement: I certify that Post Hospital snf care is medically necessary on a continuing basis for any of the conditions for which she/he is receiving care during hospitalization. Notify PCP of admission and forward orders to primary provider for signature. Weight on admission and: Weekly Other Notification Orders: Call PCP immediately if patient develops dyspnea, chest pain/tightness or edema. House Bowel Program: Yes Additional Bowel Program Orders: If no BM after 2 days, nurse may give M.O.M. 30ml PO PRN and/or ducolax Supp 1 [place] and/or BRIAN 250mg P.O., and/or senna 1-2 tabs PO. On day 3 nurse may give repeat above order until residents constipation is resolved. Annual Influenza Vaccine (between Jan 15 and August 14): Yes Two-step PPD per [facility] [id number] or approved exception documents: Yes Lab Tests or X-ray Orders: CBC and CMP within 2 days of admission Orthopedic Orders: WBAT with PT. Dressing changed 08/04/2018, to be in place for the next 7 days. Return to ortho clinic, Dr. Guo in 3-4 weeks. Continue aspirin for 4 weeks. Medication Orders: PLEASE REFER TO THE DISCHARGE MEDICATION LIST. - Medications New Prescriptions: HYDROcodone/ACET 7.5/325 [[place] 7.5/325] 1 tab PO Q4HR PRN #15 tablet PRN Reason: Pain Acetaminophen 500 mg PO QPM #30 tablet amLODIPine [Norvasc] 10 mg PO DAILY #30 tablet Calcium Carbonate [Tums (Calcium Carbonate 500mg)] 500 mg PO BID #30 tablet Cholecalciferol (Vitamin D3) [Vitamin D3] 2,000 unit PO DAILY #30 capsule Cyanocobalamin (Vitamin B-12) [Vitamin B-12] 1,000 mcg PO DAILY #30 capsule Metoprolol Tartrate 25 mg PO QPM #30 tablet Multivitamin [Theragran] 1 tab PO DAILY #30 tablet Ondansetron Odt [Zofran Odt] 4 mg TL Q6H PRN #10 tablet PRN Reason: Nausea / Vomiting Pantoprazole [Protonix] 40 mg PO QDAC #30 tablet Tizanidine HCl 2 mg PO QPM #30 capsule Vit C/E/Zinc/Lutein/Zeaxanthin [Ocuvite Eye Health Gummies] 1 tab PO DAILY #30 tab.chew - Diet Texture: Regular Liquids: Thin - Therapies | Activity Therapy: Evaluation | Treat if indicated: PT, OT Rehabilitation Potential: Maximize functional status Activity: Wt Bearing as Tolerated Weight Bearing: Full Weight Assistance Devices: Wheelchair, Walker Follow Up: Follow-up with Dr. Guo in 3-4 weeks Follow-up with PCP per SNF provider"
[2018-08-05] MEDS: MULTIVITAMIN TABLET PO SCH (08:10)
[2018-08-05] MEDS: ENOXAPARIN 30 MG/0.3 ML SYRINGE SUBQ SCH (08:10)
[2018-08-05] MEDS: CHOLECALCIFEROL 1,000 UNIT TABLET PO SCH (08:10)
[2018-08-05] MEDS: CYANOCOBALAMIN 500 MCG TABLET PO SCH (08:10)
[2018-08-05] MEDS: POLYETHYLENE GLYCOL 3350 17 GM PACKET PO SCH (08:10)
[2018-08-05] MEDS: HYDROcod/ACETAM 7.5 MG/325 MG TABLET PO PRN (08:14)
[2018-08-05] MEDS ORDERED: amLODIPine 5 MG TABLET PO SCH (09:00)
[2018-08-05 11:29] VITALS: BP 135/60
== END 2018-08-05 14:42 | DRG 470 ==
LOC: EDUNIT# → ED 11:26 → MS2 14:26
PROVIDERS: ADMIT Nurse Practitioner; ATTEND Nurse Practitioner
PROC: 0SRS0J9 Replacement of Left Hip Joint, Femoral Surface with Synthetic Substitute, Cemented, Open Approach (ICD-10-PCS; principal; 2018-08-01 12:30)
DX: S72.002A Fracture of unspecified part of neck of left femur, initial encounter for closed fracture (principal); E87.1 Hypo-osmolality and hyponatremia; I69.354 Hemiplegia and hemiparesis following cerebral infarction affecting left non-dominant side; Z86.73 Personal history of transient ischemic attack (TIA), and cerebral infarction without residual deficits; W19.XXXA Unspecified fall, initial encounter; I10 Essential (primary) hypertension; R79.89 Other specified abnormal findings of blood chemistry; M25.562 Pain in left knee; R11.2 Nausea with vomiting, unspecified
CPT/HCPCS: 36415; 71045; 73502; 74018; 80048; 80053; 83690; 85025; 85610; 86850; 86900; 86901; 93005; 96374; 96376; 97110; 97161; 97166; 97530; 99284; A6250; A9270; C1713; J0131; J0690; J1170; J1650; J2274; J2765; J7120